=== PATIENT | female | born 1970 | race Caucasian/White ===

== ENCOUNTER 2022-02-21 22:24 | Emergency (ER) | payer MEDICARE, SELFPAY ==
[2022-02-21 22:37] VITALS: BP 163/95; PULSE 84; RESP 16; TEMP 36.9; O2SAT 97
[2022-02-21 22:39] VITALS: BP 178/92; PULSE 84; RESP 16; TEMP 36.9; O2SAT 98
--- NOTE | 2022-02-21 22:42 | ECG_ITS ---
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 Measurements Intervals [place] Rate: 85 P: 51 LA: 161 QRS: 39 QRSD: 88 T: 48 QT: 355 QTc: 424 Interpretive Statements SINUS RHYTHM No previous ECG available for comparison Electronically Signed On 02-22-2022 22:20:31 CDT by Carol Dumont M.D. [id number]
--- NOTE | 2022-02-21 22:42 | XRR_ITS ---
PROCEDURE INFORMATION: Exam: XR Chest Exam date and time: 02/21/2022 10:55 PM Age: 51 years old Clinical indication: Chest pressure; Patient HX: C/O chest pain with hypertension; Additional info: Cp TECHNIQUE: Imaging protocol: XR of the chest. Views: 1 view. COMPARISON: No relevant prior studies available. FINDINGS: Lungs: Unremarkable. No consolidation. Pleural spaces: Unremarkable. No pleural effusion. No pneumothorax. Heart/Mediastinum: Unremarkable. No cardiomegaly. Bones/joints: Unremarkable. XR/XR chest 1V portable [id number] IMPRESSION: No acute findings.
--- NOTE | 2022-02-21 22:43 | ED_ITS ---
Documented by User: ISIDRO Walters 02/22/22 02:14 HPI - Chest Pain General: Chief Complaint: Chest Pain Stated Complaint: High B/P Time Seen by Provider: 02/21/22 22:35 History of Present Illness: Patient is a 51-year-old female comes to the ED with chest pain. Patient has a history of hypertension but has not been seen by her PCP in several years and stopped taking her previously prescribed amlodipine for blood pressure a while ago. She states that about 3 days ago she started having elevated blood pressures at home. She said the highest blood pressure reading she got at home was 158/97. She had some old previously prescribed amlodipine and started taking that daily for the past 3 days. Tonight, just prior to arrival she was laying down and started feeling some chest pain and tightness that is centrally located in the chest. She says the pain is mild and rates it a 5 out of 10. She also endorses having some aching right arm pain as well since onset of chest pain. She has not taken any medications or aspirin before arriving to the ED. Denies any shortness of breath, cough, abdominal pain, nausea/vomiting, fever, bladder or bowel symptoms. Associated symptoms: Deny abdominal pain, dyspnea, fever(s), nausea, palpitations or vomiting Review of Systems Const: Denies: fever(s), chills or fatigue Eyes: Denies: change in vision or eye discomfort ENMT: Denies: throat pain, odynophagia, nasal discharge or nasal congestion Card: Reports: chest pain; Denies: palpitations, edema, swelling of feet/ankles, dyspnea on exertion or orthopnea Resp: Denies: dyspnea, productive cough or non-productive cough GI: Denies: abdominal pain, nausea, vomiting, diarrhea, constipation or hematochezia : Denies: flank pain, dysuria or hematuria Musc: Denies: neck pain, back pain or extremity swelling Skin/Breast: Denies: rash or new lesions Neuro: Denies: headache(s), numbness in extremities or weakness in extremities PFS ED PFSH: Medical History Hypertension Surgical History No pertinent past surgical history Physical Exam Const: COMMON NORMALS: no acute distress, patient oriented x3 and alert GENERAL APPEARANCE: cooperative and comfortable HENMT: COMMON NORMALS: normocephalic HEAD & SCALP: normocephalic MOUTH: Normal oral and palatal mucosa present THROAT: posterior oropharynx normal and uvula midline Eye: COMMON NORMALS: Equal, round and reactive pupils present and conjunctivae normal CONJUNCTIVA: Yes conjunctivae normal PUPIL: Yes Equal, round and reactive pupils present Neck/C-Spine: COMMON NORMALS: supple GENERAL: Yes normal visual inspection Resp: COMMON NORMALS: normal respiratory effort, No retractions, No use of accessory muscles and clear to auscultation bilaterally AUSCULTATION: clear to auscultation bilaterally Cardio: COMMON NORMALS: regular rate, regular rhythm, S1 normal heart sound present, S2 normal heart sound present, No gallops present (Cardio), No clicks present (Cardio), No murmurs present (Cardio) and Peripheral pulses 2+ throughout RATE: regular rate RHYTHM: regular rhythm HEART SOUNDS: S1 normal heart sound present and S2 normal heart sound present PERIPHERAL PULSES: Peripheral pulses 2+ throughout GI: COMMON NORMALS: Normal to inspection, nondistended, normoactive bowel sounds present, Soft to palpation, non-tender and no masses PALPATION: Yes Soft to palpation : COMMON NORMALS: Yes no CVA tenderness BLADDER/KIDNEY EXAM: Yes no CVA tenderness Back/Pelvis: COMMON NORMALS: no CVA tenderness Extremity: COMMON NORMALS: normal to inspection GENERAL: Yes edema (Nonpitting edema in feet and ankles bilaterally.) Neuro: COMMON NORMALS: patient oriented x3 and moves all extremities SENSORIUM/ORIENTATION: Yes alert Skin: GENERAL SKIN EXAM: dry skin Course Vital Signs: Vital signs: Vital Signs Temperature 98.0 F 02/22/22 01:22 Pulse Rate 69 02/22/22 01:22 Respiratory Rate 18 02/22/22 01:22 Blood Pressure 138/89 02/22/22 01:22 Pulse Oximetry 96 02/22/22 01:22 MDM - Chest Pain Medical Decision Making Patient is a 51-year-old female comes to the ED for chest pain. Past medical history of hypertension. Chest pain just prior to arrival she was laying down and started feeling some chest pain and tightness that is centrally located in the chest. She says the pain is mild and rates it a 5 out of 10. She also endorses having some aching right arm pain as well since onset of chest pain. Vitals are stable. Exam of patient is benign. CBC, CMP were unremarkable. Baseline and 2-hour troponins normal. EKG showed normal sinus rhythm with no ST segment elevation or depression. Chest x-ray showed no acute findings. Heart score of 1, which puts patient at low risk for major cardiac event. patient was stable for discharge home. Patient was diagnosed with noncardiac chest pain and was discharged home. She is given strict return to ED precautions. She has an appointment with her PCP next SundayFebruary 28. Patient understood and agreed with plan. Lab Data I reviewed the patient's lab results. : 02/21/22 23:13 02/21/22 23:13 Radiology Impressions Chest X-Ray 02/21/22 22:42 IMPRESSION: No acute findings. Laboratory Results WBC 5.8 10^3/uL (4.0-10.0) 02/21/22 23:13 RBC 4.60 10^6/uL (4.1-5.3) 02/21/22 23:13 Hgb 13.3 g/dL (11.5-15.3) 02/21/22 23:13 Hct 39.3 % (37.0-47.0) 02/21/22 23:13 MCV 85.4 fl (81-99) 02/21/22 23:13 MCH 28.9 pg (28.0-34.0) 02/21/22 23:13 MCHC 33.8 g/dL (30.0-36.0) 02/21/22 23:13 RDW 13.3 % (12.1-15.1) 02/21/22 23:13 Plt Count 249 10^3/cmm (130-400) 02/21/22 23:13 MPV 11.0 fL (7.4-10.4) H 02/21/22 23:13 Neut % (Auto) 39.4 % 02/21/22 23:13 Lymph % (Auto) 48.6 % 02/21/22 23:13 [place] % (Auto) 9.0 % 02/21/22 23:13 Eos % (Auto) 2.2 % 02/21/22 23:13 Baso % (Auto) 0.5 % 02/21/22 23:13 Neut # (Auto) 2.27 10^3/uL (1.8-7.7) 02/21/22 23:13 Lymph # (Auto) 2.8 10^3/uL (0.8-4.8) 02/21/22 23:13 [place] # (Auto) 0.5 10^3/uL (0.2-0.9) 02/21/22 23:13 Eos # (Auto) 0.1 10^3/uL (0.0-0.8) 02/21/22 23:13 Baso # (Auto) 0.0 10^3/uL (0.0-0.1) 02/21/22 23:13 Nucleated RBC % (auto) 0 % 02/21/22 23:13 Nucleated RBCs # 0.0 /100WBC 02/21/22 23:13 Sodium 137 mmol/L (136-145) 02/21/22 23:13 Potassium 3.9 mmol/L (3.5-5.1) 02/21/22 23:13 Chloride 105 mmol/L (98-107) 02/21/22 23:13 Carbon Dioxide 21 mmol/L (22-29) L 02/21/22 23:13 Anion Gap 14.9 (5-19) 02/21/22 23:13 BUN 12 mg/dL (6-20) 02/21/22 23:13 Creatinine 0.7 mg/dL (0.5-0.9) 02/21/22 23:13 GFR Calculation 88.9 mL/min (90-130) L 02/21/22 23:13 Glucose 103 mg/dL (65-115) 02/21/22 23:13 Calculated Osmolality 284 mOsm/kg (285-295) L 02/21/22 23:13 Calcium 8.9 mg/dL (8.5-10.5) 02/21/22 23:13 Total Bilirubin 0.3 mg/dL (0.15-1.2) 02/21/22 23:13 AST 24 U/L (0-32) 02/21/22 23:13 ALT 28 U/L (0-33) 02/21/22 23:13 Alkaline Phosphatase 69 IU/L (35-105) 02/21/22 23:13 Troponin T Baseline 6 ng/L (0-10) 02/21/22 23:13 Troponin T 120 Minute 6.00 ng/L (0-10) 02/22/22 00:40 Delta Troponin T 0 ABS# (0-10) 02/22/22 00:40 Total Protein 6.9 g/dL (6.6-8.7) 02/21/22 23:13 Albumin 4.3 g/dL (3.5-5.2) 02/21/22 23:13 Globulin 2.6 g/dL (1.3-4.6) 02/21/22 23:13 EKG Data EKG 2: EKG interpretation date: 02/22/22 Interpretation: Sinus rhythm, 70 bpm, no ST segment elevation or depression seen. Discharge Plan Discharge Patient Disposition: Home Clinical Impression: Non-cardiac chest pain Condition: Stable Discharge Orders: Discharge ED (Routine); Ordered 02/22/22 Ordered By: Ryan Patterson Discharge Diet: Regular Discharge Activity: Increase activity as tolerated Patient Instructions: Noncardiac Chest Pain (ED) Activity Restrictions/Additional Instructions: Follow-up with your PCP at your next scheduled appointment this coming Sunday. Continue checking blood pressures daily and journal results to show to your PCP at your next visit. Return To the ER or your medical provider if condition worsens. Please read and understand discharge instructions. Thank you for choosing [facility] for your healthcare needs today. Please realize this is an emergency room and that we are providing you with a medical screening exam and this may not be complete and all inclusive of all the testing and or work up that you may need to determine your ailment or severity of your illness. It is very important that you follow up as instructed or that you return to the Emergency Department should you have concerns or if your condition changes or worsens in any way. Stand Alone Forms: Work/School Release Coding Level of Care Code ED Special Assemblies Supervisor for Chg Fwd Exam Comprehensive Documented by User: Ok Levine MD 02/22/22 03:17 HPI - Chest Pain General: Chief Complaint: Chest Pain Stated Complaint: High B/P Time Seen by Provider: 02/21/22 22:35 [facility] ED PFSH: Medical History Hypertension Surgical History No pertinent past surgical history Course Vital Signs: Vital signs: Vital Signs Temperature 98.0 F 02/22/22 01:22 Pulse Rate 69 02/22/22 01:22 Respiratory Rate 18 02/22/22 01:22 Blood Pressure 138/89 02/22/22 01:22 Pulse Oximetry 96 02/22/22 01:22 MDM - Chest Pain Medical Decision Making Patient is a 51-year-old female comes to the ED for chest pain. Past medical history of hypertension. Chest pain just prior to arrival she was laying down and started feeling some chest pain and tightness that is centrally located in the chest. She says the pain is mild and rates it a 5 out of 10. She also endorses having some aching right arm pain as well since onset of chest pain. Vitals are stable. Exam of patient is benign. CBC, CMP were unremarkable. Baseline and 2-hour troponins normal. EKG showed normal sinus rhythm with no ST segment elevation or depression. Chest x-ray showed no acute findings. Heart score of 1, which puts patient at low risk for major cardiac event. patient was stable for discharge home. Patient was diagnosed with noncardiac chest pain and was discharged home. She is given strict return to ED precautions. She has an appointment with her PCP next SundayFebruary 28. Patient understood and agreed with plan. I have reviewed this documentation. Ok Levine MD Emergency Medicine Lab Data : 02/21/22 23:13 02/21/22 23:13 Radiology Impressions Chest X-Ray 02/21/22 22:42 IMPRESSION: No acute findings. Laboratory Results WBC 5.8 10^3/uL (4.0-10.0) 02/21/22 23:13 RBC 4.60 10^6/uL (4.1-5.3) 02/21/22 23:13 Hgb 13.3 g/dL (11.5-15.3) 02/21/22 23:13 Hct 39.3 % (37.0-47.0) 02/21/22 23:13 MCV 85.4 fl (81-99) 02/21/22 23:13 MCH 28.9 pg (28.0-34.0) 02/21/22 23:13 MCHC 33.8 g/dL (30.0-36.0) 02/21/22 23:13 RDW 13.3 % (12.1-15.1) 02/21/22 23:13 Plt Count 249 10^3/cmm (130-400) 02/21/22 23:13 MPV 11.0 fL (7.4-10.4) H 02/21/22 23:13 Neut % (Auto) 39.4 % 02/21/22 23:13 Lymph % (Auto) 48.6 % 02/21/22 23:13 [place] % (Auto) 9.0 % 02/21/22 23:13 Eos % (Auto) 2.2 % 02/21/22 23:13 Baso % (Auto) 0.5 % 02/21/22 23:13 Neut # (Auto) 2.27 10^3/uL (1.8-7.7) 02/21/22 23:13 Lymph # (Auto) 2.8 10^3/uL (0.8-4.8) 02/21/22 23:13 [place] # (Auto) 0.5 10^3/uL (0.2-0.9) 02/21/22 23:13 Eos # (Auto) 0.1 10^3/uL (0.0-0.8) 02/21/22 23:13 Baso # (Auto) 0.0 10^3/uL (0.0-0.1) 02/21/22 23:13 Nucleated RBC % (auto) 0 % 02/21/22 23:13 Nucleated RBCs # 0.0 /100WBC 02/21/22 23:13 Sodium 137 mmol/L (136-145) 02/21/22 23:13 Potassium 3.9 mmol/L (3.5-5.1) 02/21/22 23:13 Chloride 105 mmol/L (98-107) 02/21/22 23:13 Carbon Dioxide 21 mmol/L (22-29) L 02/21/22 23:13 Anion Gap 14.9 (5-19) 02/21/22 23:13 BUN 12 mg/dL (6-20) 02/21/22 23:13 Creatinine 0.7 mg/dL (0.5-0.9) 02/21/22 23:13 GFR Calculation 88.9 mL/min (90-130) L 02/21/22 23:13 Glucose 103 mg/dL (65-115) 02/21/22 23:13 Calculated Osmolality 284 mOsm/kg (285-295) L 02/21/22 23:13 Calcium 8.9 mg/dL (8.5-10.5) 02/21/22 23:13 Total Bilirubin 0.3 mg/dL (0.15-1.2) 02/21/22 23:13 AST 24 U/L (0-32) 02/21/22 23:13 ALT 28 U/L (0-33) 02/21/22 23:13 Alkaline Phosphatase 69 IU/L (35-105) 02/21/22 23:13 Troponin T Baseline 6 ng/L (0-10) 02/21/22 23:13 Troponin T 120 Minute 6.00 ng/L (0-10) 02/22/22 00:40 Delta Troponin T 0 ABS# (0-10) 02/22/22 00:40 Total Protein 6.9 g/dL (6.6-8.7) 02/21/22 23:13 Albumin 4.3 g/dL (3.5-5.2) 02/21/22 23:13 Globulin 2.6 g/dL (1.3-4.6) 02/21/22 23:13 Discharge Plan Discharge Patient Disposition: Home Clinical Impression: Non-cardiac chest pain Condition: Stable Discharge Orders: Discharge ED (Routine); Ordered 02/22/22 Ordered By: Ryan Patterson Discharge Diet: Regular Discharge Activity: Increase activity as tolerated Patient Instructions: Noncardiac Chest Pain (ED) Activity Restrictions/Additional Instructions: Follow-up with your PCP at your next scheduled appointment this coming Sunday. Continue checking blood pressures daily and journal results to show to your PCP at your next visit. Return To the ER or your medical provider if condition worsens. Please read and understand discharge instructions. Thank you for choosing [facility] for your healthcare needs today. Please realize this is an emergency room and that we are providing you with a medical screening exam and this may not be complete and all inclusive of all the testing and or work up that you may need to determine your ailment or severity of your illness. It is very important that you follow up as instructed or that you return to the Emergency Department should you have concerns or if your condi tion changes or worsens in any way. Stand Alone Forms: Work/School Release Coding Level of Care Code ED Special Assemblies Supervisor for Paul Fwd Exam Comprehensive
[2022-02-21 23:09] VITALS: BP 153/83; PULSE 84; RESP 14; TEMP 36.9; O2SAT 98
[2022-02-21 23:19] LABS: Basophils % 0.5 %; Eosinophils # 0.1 10^3/uL (0.0-0.8); Eosinophils % 2.2 %; Hematocrit 39.3 % (37.0-47.0); Hemoglobin 13.3 g/dL (11.5-15.3); Lymphocytes # 2.8 10^3/uL (0.8-4.8); Lymphocytes % 48.6 %; Mean Corpuscular HGB Conc 33.8 g/dL (30.0-36.0); Mean Corpuscular Hemoglobin 28.9 pg (28.0-34.0); Mean Corpuscular Volume 85.4 fl (81-99); Monocytes # 0.5 10^3/uL (0.2-0.9); Neutrophils # 2.27 10^3/uL (1.8-7.7); Neutrophils % 39.4 %; Nucleated Red Blood Cells % 0 %; Platelet Count 249 10^3/cmm (130-400); Red Cell Distribution Width 13.3 % (12.1-15.1); White Blood Count 5.8 10^3/uL (4.0-10.0)
[2022-02-21] MEDS: aspirin 81 mg Chew Tablet 324 MG PO (23:26)
[2022-02-21 23:30] VITALS: BP 138/88; PULSE 75; RESP 16; O2SAT 98
[2022-02-21 23:40] VITALS: BP 138/88; PULSE 75; RESP 16; TEMP 36.9; O2SAT 98
[2022-02-21 23:45] LABS: Troponin(5th) Baseline 6 ng/L (0-10)
[2022-02-21 23:46] LABS: Alanine Aminotransferase 28 U/L (0-33); Albumin Level 4.3 g/dL (3.5-5.2); Alkaline Phosphatase 69 IU/L (35-105); Anion Gap 14.9 (5-19); Aspartate Amino Transferase 24 U/L (0-32); Blood Urea Nitrogen 12 mg/dL (6-20); Calcium 8.9 mg/dL (8.5-10.5); Carbon Dioxide 21 mmol/L (22-29); Chloride 105 mmol/L (98-107); Globulin 2.6 g/dL (1.3-4.6); Glomerular Filtration Rate 88.9 mL/min (90-130); Glucose 103 mg/dL (65-115); Osmolality Calculated 284 mOsm/kg (285-295); Potassium 3.9 mmol/L (3.5-5.1); Sodium 137 mmol/L (136-145); Total Bilirubin 0.3 mg/dL (0.15-1.2); Total Protein 6.9 g/dL (6.6-8.7)
--- NOTE | 2022-02-22 00:42 | ECG_ITS ---
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 Measurements Intervals [place] Rate: 70 P: 56 AR: 171 QRS: 72 QRSD: 93 T: 50 QT: 406 QTc: 438 Interpretive Statements SINUS RHYTHM Compared to ECG 02/21/2022 21:46:41 No significant changes Electronically Signed On 02-22-2022 22:26:03 CDT by Carol Dumont M.D. [id number]
[2022-02-22 01:00] VITALS: BP 138/89; PULSE 69; RESP 18; O2SAT 96
[2022-02-22 01:19] LABS: Troponin 5 2HR Delta 0 ABS# (0-10)
[2022-02-22] MEDS: ketorolac 30 mg/mL INJ IVP (01:20)
[2022-02-22 01:22] VITALS: BP 138/89; PULSE 69; RESP 18; TEMP 36.7; O2SAT 96
== END 2022-02-22 01:29 | disposition home or self-care (01) ==
PROVIDERS: Emergency Provider Physician Assistant
DX: R07.89 Other chest pain (principal); I10 Essential (primary) hypertension
CPT/HCPCS: 71045; 80053; 84484; 85025; 93005; 96374; 99284; J1885

== ENCOUNTER → 2022-07-01 15:10 | Outpatient (BNVA) | payer OTHER, SELFPAY | PROVIDERS: Visit Provider Nurse Practitioner Family | DX: M54.9 Dorsalgia, unspecified (principal); S29.012A Strain of muscle and tendon of back wall of thorax, initial encounter; X58.XXXA Exposure to other specified factors, initial encounter | CPT/HCPCS: 81000 ==

== ENCOUNTER 2023-07-03 12:26 | Outpatient (CLI) | payer OTHER, SELFPAY ==
[2023-07-03 13:00] LABS: Basophils % 0.8 %; Eosinophils # 0.1 10^3/uL (0.0-0.8); Eosinophils % 1.7 %; Hematocrit 40.3 % (36-47); Lymphocytes # 2.4 10^3/uL (0.8-4.8); Lymphocytes % 50.7 %; Mean Corpuscular HGB Conc 32.8 g/dL (30-55); Mean Corpuscular Hemoglobin 28.7 pg (27-33); Mean Corpuscular Volume 87.6 fl (85-98); Mean Platelet Volume 10.8 fL (7.4-10.4); Monocytes # 0.3 10^3/uL (0.2-0.9); Monocytes % 6.4 %; Neutrophils # 1.93 10^3/uL (1.8-7.7); Neutrophils % 40.2 %; Nucleated Red Blood Cells % 0 %; Platelet Count 239 10^3/cmm (157-399); Red Cell Distribution Width 13.5 % (12.1-15.1); White Blood Count 4.81 10^3/uL (3.29-11.43)
[2023-07-03 13:43] LABS: Folate Level 11.6 ng/mL (4.8-37.3)
[2023-07-03 13:45] LABS: 25 Hydroxy Vitamin D 20 ng/mL (30-100); Alanine Aminotransferase 16 U/L (0-33); Albumin Level 4.4 g/dL (3.5-5.2); Alkaline Phosphatase 77 U/L (35-105); Anion Gap 12.9 (5-19); Aspartate Amino Transferase 18 U/L (0-32); Blood Urea Nitrogen 17 mg/dL (6-20); Calcium 9.3 mg/dL (8.5-10.5); Carbon Dioxide 26 mmol/L (22-29); Chloride 105 mmol/L (98-107); Globulin 2.8 g/dL (1.3-4.6); Glucose 119 mg/dL (65-115); Magnesium 2.1 mg/dL (1.7-2.3); Osmolality Calculated 293 mOsm/kg (285-295); Potassium 3.9 mmol/L (3.5-5.1); Sodium 140 mmol/L (136-145); Thyroid Stimulating Hormone 1.05 uIU/mL (0.27-4.20); Total Bilirubin 0.5 mg/dL (0.15-1.2); Total Protein 7.2 g/dL (6.6-8.7); Vitamin B12 595 pg/mL (232-1245)
[2023-07-03 14:10] LABS: Free T4 Free Thyroxine 1.31 ng/dL (0.82-1.77); T3 Free 3.3 PG/ML (2.0-4.4)
[2023-07-06 17:40] LABS: Methylmalonic Acid 143 nmol/L (87-318)
[2023-07-07 09:19] LABS: Lamotrigine (Lamictal) Level 6.1 mcg/mL (2.5-15.0)
[2023-07-07 16:49] LABS: Vitamin B6 Plasma 6.9 ng/mL (2.1-21.7)
== END 2023-07-03 12:27 | disposition home or self-care (01) ==
LOC: LAB 12:26
PROVIDERS: PCP Nurse Practitioner Family; Visit Provider Psychiatry & Neurology Neurology
DX: G40.909 Epilepsy, unspecified, not intractable, without status epilepticus (principal)
CPT/HCPCS: 36415; 80053; 80175; 82306; 82607; 82746; 83735; 83921; 84207; 84439; 84443; 84481; 85025

== ENCOUNTER 2023-07-05 14:58 | Outpatient (CLI) | payer OTHER, SELFPAY ==
--- NOTE | 2023-07-05 15:15 | MR_ITS ---
WS: [id number] MRI HEAD WITH CONTRAST TECHNIQUE: Sagittal T1, T2 axial, T2 axial FLAIR, axial susceptibility weighted imaging, axial diffus ion weighted images, and coronal T2 images were obtained. Pre and post-T1 axial and post T1 coronal i mages. ADC and FSPGR images. CLINICAL INFORMATION: R56.9 - Unspecified convulsions COMPARISON: None. FINDINGS: No evidence of restricted diffusion to suggest acute ischemia. Ventricular system and basilar cistern s are patent. Normal bowers-white differentiation. No suspicious intracranial signal normalities. [place] l posterior fossa. Normal vascular flow voids at the skull base. No extra-axial fluid collections. No evidence of mass or mass effect. Normal posterior nasopharynx. Mild mucosal thickening with a small amount of fluid in the maxillary sinuses. Mucosal thickening and fluid in the RIGHT sphenoid sinus. M astoid air cells are well aerated. No hemosiderin on the susceptibly weighted images. Normal optic chiasm and pituitary infundibulum. Te mporal lobes and hippocampal formations are normal in appearance. No signal abnormalities mesial temp oral lobes. No abnormal intracranial enhancement. Normal optic chiasm and pituitary infundibulum. Normal dural ve nous sinuses. IMPRESSION: 1. No evidence of restricted diffusion to suggest acute ischemia. 2. No suspicious intracranial signal normalities. Normal bowers-white differentiation. 3. Temporal lobes and hippocampal formations are normal in appearance. No signal abnormalities in th e mesial temporal lobes. 4. Mild parenchymal volume loss. 5. No hemosiderin on susceptibility-weighted images. 6. No abnormal intracranial enhancement. 7. Mild inflammatory changes in the paranasal sinuses.
[2023-07-05] MEDS: gadobenate dimeglumine 20 mL vial IV (15:58)
== END 2023-07-05 14:59 | disposition home or self-care (01) ==
LOC: RAD 14:58
PROVIDERS: PCP Nurse Practitioner Family; Visit Provider Psychiatry & Neurology Neurology
DX: R56.9 Unspecified convulsions (principal)
CPT/HCPCS: 70553; A9577

== ENCOUNTER 2023-07-16 15:19 | Emergency (ER) | payer OTHER, SELFPAY ==
[2023-07-16 15:34] VITALS: BP 157/97; PULSE 81; RESP 16; TEMP 36.5; O2SAT 98; BMI 28.1
--- NOTE | 2023-07-16 15:41 | W.ED.LOWEXIN ---
HPI - Extremity Injury (Lower) General: Chief Complaint: Extremity Injury, Lower Stated Complaint: fell Time Seen by Provider: 07/16/23 15:40 Source: patient Mode of arrival: ambulatory Limitations: no limitations History of Present Illness: Patient is a 53-year-old female presents to ED today with complaint of right leg pain. Patient states yesterday she accidentally tripped over her animal. She states she landed onto her right knee but really is not having pain here. She feels like she pulled something in her right buttock and down the posterior right thigh as she describes it as a burning sensation . She is ambulatory on the extremity without difficulty or assistance. complaint: thigh injury Onset (ago): day(s) (yesterday) Injury: Right: thigh Type of Injury: other (fall) Place: home Severity: moderate Relieving factors: immobilization Exacerbating factors: weight bearing Context: fall Associated symptoms: Reports no associated symptoms Other symptoms: none Review of Systems Musc: Reports: extremity pain; Denies: neck pain, back pain, extremity swelling, joint pain, joint swelling, joint redness, joint warmth, joint stiffness, limited range of motion, muscle cramps, muscle weakness, decrease in muscle mass or loss of height Neuro: Denies: numbness in extremities, weakness in extremities, sensory changes or difficulty walking [facility] ED PFSH: Medical History Hypertension Surgical History No pertinent past surgical history Family History Grandmother Cancer Heart attack Mother Hypertension Daughter Epilepsy Physical Exam Const: COMMON NORMALS: no acute distress, patient oriented x3, no limitations, alert and well nourished Resp: COMMON NORMALS: normal respiratory effort and clear to auscultation bilaterally AUSCULTATION: clear to auscultation bilaterally Cardio: COMMON NORMALS: regular rate and regular rhythm RATE: regular rate RHYTHM: regular rhythm GI: COMMON NORMALS: Normal to inspection, nondistended, normoactive bowel sounds present, Soft to palpation, non-tender and no masses PALPATION: Yes Soft to palpation : COMMON NORMALS: Yes no CVA tenderness BLADDER/KIDNEY EXAM: Yes no CVA tenderness Back/Pelvis: COMMON NORMALS: no CVA tenderness, thoracic and lumbar spine normal to inspection, no thoracic nor lumbar tenderness and thoraco-lumbar ROM normal Extremity: COMMON NORMALS: full ROM, capillary refill normal, no joint enlargement, no clubbing, cyanosis or edema, no calf tenderness and no pedal edema GENERAL: Yes normal exam except as noted OTHER: distal pulses/sensation normal; no swelling/discoloration noted EXTREMITY IMAGE (BACK): 1. 2. mild tenderness to palpation with radiation/burning posterior thigh; full ROM; can bear full weight on extremity Neuro: COMMON NORMALS: patient oriented x3, moves all extremities, no focal motor deficits and no sensory deficits noted SENSORIUM/ORIENTATION: Yes alert Skin: COMMON NORMALS: no rashes or lesions noted GENERAL SKIN EXAM: no rashes or lesions noted TRAUMA: no lacerations or abrasions Course Vital Signs: Vital signs: Vital Signs Temperature 97.7 F 07/16/23 15:34 Pulse Rate 81 07/16/23 15:34 Respiratory Rate 16 07/16/23 15:34 Blood Pressure 157/97 07/16/23 15:34 Pulse Oximetry 98 07/16/23 15:34 Oxygen Delivery Me thod Room Air 07/16/23 15:34 MDM - Extremity Injury (Lower) Medical Decision Making Patient does not appear to have any bony tenderness. Offered XR of hip/pelvis but she declines. Patient will be put on anti-inflammatories and steroids to help with inflammation. Return ED precautions given. Otherwise I would like her to follow-up with primary care later this week/next week if symptoms do not seem to be improving. No radiology studies performed this visit Discharge Plan Discharge Patient Disposition: Home Clinical Impression: Muscle strain of gluteal region Qualifiers: Encounter type: initial encounter Laterality: right Qualified Code(s): S76.011A - Strain of muscle, fascia and tendon of right hip, initial encounter Condition: Stable Prescriptions: New Medrol (Myron) 4 mg tablets,dose pack See Rx Instructions .ROUTE .COMPLEX Qty: 21 0RF Rx Instructions: orally per package directions meloxicam 7.5 mg tablet 7.5 mg PO DAILY Qty: 14 0RF No Action clonazepam 1 mg tablet 1 mg PO DAILY Qty: 30 2RF Rx Instructions: take one at bed time lisinopril 20 mg tablet 20 mg PO DAILY cholecalciferol (vitamin D3) 1,250 mcg (50,000 unit) capsule 50,000 unit PO .weekly Qty: 12 2RF lamotrigine 50 mg tablet extended release 24hr 50 mg PO DAILY Qty: 90 2RF Rx Instructions: 2 in am 3 in pm for week, then 3 in am and 3 at night after Discharge Orders: Discharge ED (Routine); Ordered 07/16/23 Ordered By: Lorene Kilpatrick Referrals: Altagracia Corley FNP [Primary Care Provider] - Patient Instructions: Muscle Strain (DC) Activity Restrictions/Additional Instructions: As we discussed please follow-up with primary care in 1 to 2 weeks if symptoms do not seem to be improving. You may continue ice and heat. You may also do [id number] Tylenol in addition to the medications prescribed today. Do not do any additional anti-inflammatory such as naproxen or ibuprofen as meloxicam as an anti-inflammatory. Coding Level of Care Code ED Bilingual Loan Processor for Paul Macdonald
[2023-07-16] MEDS: dexamethasone 10 mg/mL INJ 8 MG IM (16:00)
[2023-07-16] MEDS: ketorolac 60 mg/2 mL INJ IM (16:00)
[2023-07-16 16:34] VITALS: BP 157/97; PULSE 81; RESP 16; TEMP 36.5; O2SAT 98
== END 2023-07-16 16:35 | disposition home or self-care (01) ==
PROVIDERS: Emergency Provider Physician Assistant; PCP Nurse Practitioner Family
DX: S76.011A Strain of muscle, fascia and tendon of right hip, initial encounter (principal); I10 Essential (primary) hypertension; W01.0XXA Fall on same level from slipping, tripping and stumbling without subsequent striking against object, initial encounter
CPT/HCPCS: 96372; 99284; J1100; J1885

== ENCOUNTER 2023-07-26 08:50 | Observation (INO) | payer OTHER, SELFPAY ==
[2023-07-26] VITALS (55 sets, daily range): BP systolic 112–170; BP diastolic 66–128; PULSE 71–93; RESP 11–25; TEMP 36.8; O2SAT 88–100; BMI 30.8
--- NOTE | 2023-07-26 08:57 | ED_ITS ---
HPI - Seizure General: Chief Complaint: Seizure Stated Complaint: Seizure Time Seen by Provider: 07/26/23 08:56 Source: patient Mode of arrival: wheelchair History of Present Illness: HPI Narrative: 53-year-old female with a history of seizures, she has a history of juvenile myoclonic epilepsy. She was at work this morning interestingly enough in the neurology office with Dr. Vickers he witnessed 3 seizures while she was there a rapid response was called and she was brought to the emergency room no recent change in medication she did not recently been ill no recent alcohol use or head injury. She is currently on Lamictal and clonazepam. She has been on valproic acid in the past but had hair loss and stopped it. She reports her last seizure was 3 months ago on arrival here she is mildly postictal, but cognizant enough to give good history. Dr. Vickers is in the department and recommended a gram of valproic acid along with a milligram of Ativan. Patient states she is not recently changed or missed any doses of her medication. complaint: seizure Description of Episode: tonic-clonic movement Witnessed: Yes - by Bystander Trauma: No Seizure History: No Place: Work Associated symptoms: Deny chest pain, chills or fever(s) Treatments prior to arrival: none Review of Systems Const: Denies: fever(s) or chills Card: Denies: chest pain Resp: Denies: dyspnea GI: Denies: abdominal pain : Denies: dysuria, urinary frequency or urinary urgency Musc: Denies: neck pain or back pain Skin/Breast: Denies: rash Neuro: Reports: other (Seizures); Denies: headache(s) PFS ED PFSH: Medical History (Updated 08/06/23 @ 06:38 by Marcos Archer DO) Hypertension Juvenile myoclonic epilepsy, intractable, without status epilepticus Surgical History (Updated 07/26/23 @ 11:13 by Mario Alberto Conti MD) History of cholecystectomy Hx of appendectomy Hx of colonoscopy with polypectomy Hx of hysterectomy No pertinent past surgical history Family History Grandmother Cancer Heart attack Mother Hypertension Daughter Epilepsy Social History (Updated 07/26/23 @ 11:14 by Mario Alberto Conti MD) Smoking and tobacco/nicotine status: former use of tobacco/nicotine Alcohol intake: never Physical Exam Const: COMMON NORMALS: no acute distress GENERAL APPEARANCE: cooperative and comfortable ORIENTATION/CONSCIOUSNESS: Yes awake, Yes oriented to person, Yes oriented to place and Yes oriented to time HENMT: COMMON NORMALS: normocephalic, atraumatic and hearing grossly normal bilaterally HEAD & SCALP: normocephalic and atraumatic Resp: COMMON NORMALS: normal respiratory effort, No retractions, No use of accessory muscles and clear to auscultation bilaterally AUSCULTATION: clear to auscultation bilaterally Cardio: COMMON NORMALS: regular rate, regular rhythm and No murmurs present (Cardio) RATE: regular rate RHYTHM: regular rhythm GI: COMMON NORMALS: Soft to palpation and No hepatosplenomegaly present AUSCULTATION: Yes normoactive bowel sounds PALPATION: Yes Soft to palpation, No Tenderness to palpation present (GI), No Guarding due to palpation present (GI) and Yes No hepatosplenomegaly present Extremity: COMMON NORMALS: normal to inspection, capillary refill normal, no clubbing, cyanosis or edema, no calf tenderness and no pedal edema Neuro: SENSORIUM/ORIENTATION: Yes oriented to person, Yes oriented to place and Yes oriented to time Skin: COMMON NORMALS: no rashes or lesions noted GENERAL SKIN EXAM: no rashes or lesions noted Course Vital Signs: Vital signs: Vital Signs Temperature 98.3 F 07/27/23 09:34 Pulse Rate 77 07/27/23 09:34 Respiratory Rate 24 H 07/27/23 09:34 Blood Pressure 134/78 07/27/23 09:34 Pulse Oximetry 96 07/27/23 09:34 Oxygen Delivery Me thod Room Air 07/27/23 06:00 MDM - Seizure MDM Narrative Medical decision making narrative: Patient seen in the emergency room by Dr. Vickers. He recommends the patient be admitted initiate valproic acid and monitor. Patient has mild elevation of creatinine mild metabolic acidosis suspect this may be related to the recent seizure. Discussed with hospitalist and with neurology orders written Medical Records Attestation: I reviewed the patient's medical records. Lab Data Attestation: I reviewed the patient's lab results. 07/27/23 04:25 07/27/23 04:25 Labs: Laboratory Results WBC 9.71 10^3/uL (3.29-11.43) 07/26/23 08:46 RBC 5.19 10^6/uL (3.85-5.65) 07/26/23 08:46 Hgb 14.80 g/dL (11.27-16.99) 07/26/23 08:46 Hct 48.0 % (36-47) H 07/26/23 08:46 MCV 92.5 fl (85-98) 07/26/23 08:46 MCH 28.5 pg (27-33) 07/26/23 08:46 MCHC 30.8 g/dL (30-55) 07/26/23 08:46 RDW 13.2 % (12.1-15.1) 07/26/23 08:46 Plt Count 269 10^3/cmm (157-399) 07/26/23 08:46 MPV 11.3 fL (7.4-10.4) H 07/26/23 08:46 Lymph % (Auto) Not Reportable 07/26/23 08:46 Stanton % (Auto) Not Reportable 07/26/23 08:46 Lymph # (Auto) Not Reportable 07/26/23 08:46 Stanton # (Auto) Not Reportable 07/26/23 08:46 Total Counted 100 (0-100) 07/26/23 08:46 Atypical Lymphs % 17.0 % (0-5) H 07/26/23 08:46 Absolute Neutrophils 3.8 10^3/cmm (1.4-6.5) 07/26/23 08:46 Segmented Neutrophils 39 % 07/26/23 08:46 Abs Segm Neuts (Man) 3.8 10/cmm (1.6-7.1) 07/26/23 08:46 Band Neutrophils 0.0 % 07/26/23 08:46 Abs Band Neuts (Man) 0.0 10^3/cmm (0.0-1.2) 07/26/23 08:46 Absolute Lymphocytes 5.0 10^3/cmm (1.2-3.4) H 07/26/23 08:46 Lymphocytes (Manual) 35 % 07/26/23 08:46 Monocytes (Manual) 9.0 % 07/26/23 08:46 Absolute Monocytes 0.9 10^3/cmm (0.1-0.6) H 07/26/23 08:46 Eosinophils (Manual) 0 % 07/26/23 08:46 Absolute Eosinophils 0.0 10^3/cmm (0.0-0.7) 07/26/23 08:46 Basophils (Manual) 0.0 % 07/26/23 08:46 Absolute Basophils 0.0 10^3/cmm (0.0-0.2) 07/26/23 08:46 Platelet Estimate Normal (Normal) 07/26/23 08:46 Giant Platelets 1+ H 07/26/23 08:46 Sodium 144 mmol/L (136-145) 07/26/23 08:46 Potassium 3.6 mmol/L (3.5-5.1) 07/26/23 08:46 Chloride 103 mmol/L (98-107) 07/26/23 08:46 Carbon Dioxide 14 mmol/L (22-29) L 07/26/23 08:46 Anion Gap 30.6 (5-19) H 07/26/23 08:46 BUN 14 mg/dL (6-20) 07/26/23 08:46 Creatinine 1.1 mg/dL (0.5-0.9) H 07/26/23 08:46 GFR Calculation 52.4 mL/min (90-130) L 07/26/23 08:46 Glucose 142 mg/dL (65-115) H 07/26/23 08:46 Calculated Osmolality 301 mOsm/kg (285-295) H 07/26/23 08:46 Calcium 10.0 mg/dL (8.5-10.5) 07/26/23 08:46 Magnesium 2.5 mg/dL (1.7-2.3) H 07/26/23 08:46 Total Bilirubin 0.4 mg/dL (0.15-1.2) 07/26/23 08:46 AST 23 U/L (0-32) 07/26/23 08:46 ALT 18 U/L (0-33) 07/26/23 08:46 Alkaline Phosphatase 89 U/L (35-105) 07/26/23 08:46 Total Protein 7.7 g/dL (6.6-8.7) 07/26/23 08:46 Albumin 4.5 g/dL (3.5-5.2) 07/26/23 08:46 Globulin 3.2 g/dL (1.3-4.6) 07/26/23 08:46 Lamotrigine 1.9 mcg/mL (2.5-15.0) L 07/26/23 08:46 All radiology interpretation(s) finalized by discharge Discharge Plan Discharge Patient Disposition: Admitted As Inpatient Admit Provider: Mario Alberto Conti Clinical Impression: Generalized seizure Condition: Stable Discharge Diet: Regular Discharge Activity: Increase activity as tolerated Coding Level of Care Code ED Ostomy Care Nurse for Paul Macdonald
[2023-07-26 09:09] LABS: Mean Corpuscular HGB Conc 30.8 g/dL (30-55); Mean Corpuscular Hemoglobin 28.5 pg (27-33); Mean Corpuscular Volume 92.5 fl (85-98); Mean Platelet Volume 11.3 fL (7.4-10.4); Platelet Count 269 10^3/cmm (157-399); Red Blood Count 5.19 10^6/uL (3.85-5.65); Red Cell Distribution Width 13.2 % (12.1-15.1); White Blood Count 9.71 10^3/uL (3.29-11.43)
[2023-07-26] MEDS: LORazepam 2 mg/mL INJ 1 mL 1 MG IVP (09:10)
[2023-07-26] MEDS: valproic acid inj 1,000 MG in sodium chloride 0.9% 50 ML 55 MG IV (09:12)
[2023-07-26 09:36] LABS: Alanine Aminotransferase 18 U/L (0-33); Albumin Level 4.5 g/dL (3.5-5.2); Alkaline Phosphatase 89 U/L (35-105); Anion Gap 30.6 (5-19); Aspartate Amino Transferase 23 U/L (0-32); Blood Urea Nitrogen 14 mg/dL (6-20); Carbon Dioxide 14 mmol/L (22-29); Chloride 103 mmol/L (98-107); Globulin 3.2 g/dL (1.3-4.6); Glomerular Filtration Rate 52.4 mL/min (90-130); Glucose 142 mg/dL (65-115); Magnesium 2.5 mg/dL (1.7-2.3); Osmolality Calculated 301 mOsm/kg (285-295); Potassium 3.6 mmol/L (3.5-5.1); Sodium 144 mmol/L (136-145); Total Bilirubin 0.4 mg/dL (0.15-1.2); Total Protein 7.7 g/dL (6.6-8.7)
--- NOTE | 2023-07-26 09:46 | PM.CONSULT ---
Providers/Reason For Consult Consulting Physician/Specialty*: Krzysztof Vickers MD neurology and epilepsy Reason for Consult*: Intractable juvenile myoclonic epilepsy with recurrent seizures associated with loss of consciousness History of Present Illness History of Present Illness Referring physician: Altagracia JEFFREY Reason for observation admission: Juvenile myoclonic epilepsy with recurrent myoclonic jerks with altered awareness with progression to grand mal seizure on July 26, 2023 (witnessed by myself and medical staff in the [facility] clinic) History of present illness: 53-year-old female who is employed at [employer].? The patient was diagnosed with juvenile myoclonic epilepsy (ERIC) at age 15.? The patient stated that she was not only experiencing myoclonic jerks but also grand mal seizures 5 times a week.? The patient stated that she underwent a hysterectomy in 2007 and the grand mal seizures stopped in 2018.? The patient stated that she has not experienced any seizures associated with altered awareness since 2019.? She reports an occasional single brief myoclonic jerk in her upper extremities without altered awareness approximately once a month.? She stated that when the occasional single myoclonic jerks occur, there is no associated altered awareness.? Last myoclonic jerk was April 2023.? According to the patient she was diagnosed in [facility] and later her parents moved to [place].? She stated that her and the patient reports that she and her family moved back to [place].? 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 Patient stated that her license were reinstated but she has to fill out paperwork every year to keep her license from being revoked.? Patient stated that when her the paperwork was lost and she has contacted [place] to request another application from the [place] [employer] ([employer]).? I recommend the patient undergo surface EEG recording, head MRI with and without contrast, and restart her Lamictal and Klonopin.? Patient stated that she has not been taking the Lamictal secondary to insurance issues.? She stated that now she has insurance with [employer] since she is employed with [facility].? Patient stated that she requested that her Klonopin be restarted when she was seen nurse kavon Zavala but she stated that Klonopin was not prescribed.? I recommended the patient undergo a trough Lamictal level as well as lab for CBC, comprehensive metabolic panel, vitamin D, methylmalonic acid, B12, folate, vitamin B6, thyroid profile and magnesium in approximately 5 weeks once she is taking 100 mg twice a day of Lamictal Juvenile myoclonic epilepsy.? I agreed to restart the patient's Klonopin at 1 mg p.o. nightly.? Since the patient had not experienced any seizures associated with altered awareness since 2009, the patient was not placed on any restrictions with regards to her juvenile myoclonic epilepsy. The patient underwent trough Lamictal level on 04/19/2023. The patient's Lamictal level was therapeutic at 6.1 (therapeutic range 2.5-15). The patient underwent a 71-minute surface EEG recording. This study was an abnormal awake, stage I and stage II sleep recording secondary to occasional rare sharply contoured 4 to 5 Hz theta slowing seen over the left hemisphere in the posterior leads that T5 and L1 and on one occasion a single rare spike was seen over the left hemisphere at F7, T3 and T5 with phase reversal at T3 during stage II sleep. Findings consistent with patient's history of intractable epilepsy. Note: No active seizure activity was seen. The patient was doing well with no issues and actually had just reinstated her driving privileges. 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 The medical staff observed the patient having the myoclonic jerks and the patient was evaluated blood pressure was 174/113 heart rate 84 O2 saturations 97%. Respirations 16. I was informed of the patient's myoclonic jerks since I was on in the clinic down the hallway. Upon initial evaluation the patient displayed some intermittent myoclonic jerks without altered awareness. I recommended Ativan 1 mg. But, prior to the patient receiving the Ativan she experienced recurrent myoclonic jerks followed by altered awareness and then she was witnessed to experience a generalized tonic-clonic seizure lasting less than 1 minute followed by postevent drooling and sleepiness for several minutes. The rapid response team was contacted and the patient was taken to the [facility] emergency room bed #12. I accompanied the rapid response team to the emergency room with the patient and I spoke with Dr. Love via phone prior to transfer to [facility] 1 mg Ativan and start IV Depacon 1 g load and IV normal saline 1 L. In the emergency room the patient did not experience any further seizures. Ativan was administered without any issues and patient was started on IV Depacon as ordered. I recommended continuing the patient's home medications for seizures which include Lamictal 150 mg p.o. twice daily and Klonopin 1 mg p.o. nightly. Also recommended starting Depakote ER 250 mg p.o. twice daily and have patient follow-up in the neurology clinic at [facility] in approximately 1 to 2 weeks with repeat surface EEG recording on 08/07/2023. Patient will also obtain trough Depakote level on 07/27/2023 and Ativan was ordered for 1 mg IV every 6 hours as needed seizures and patient was placed on seizure precautions which includes no driving or participating in activity that would endanger herself or others in the event she experienced a seizure while participating in those activities per state law. Past medical history: Juvenile myoclonic epilepsy diagnosed at age 15 Grand mal seizures, last reported grand mal seizure was 2009 following hysterectomy Status post hysterectomy 2007 Hypertension Vitamin D deficiency, patient on vitamin D replacement Drug allergies: Codeine which resulted in a rash Morphine which resulted in a rash Current medications: Lamictal ER 150 mg p.o. twice daily for seizure prophylaxis Klonopin 1 mg p.o. nightly for seizure prophylaxis Lisinopril 20 mg p.o. daily Mobic 7.5 mg p.o. daily Vitamin D3 50,000 international units p.o. weekly Past medications: Depakote which resulted in hair loss Topamax which controlled her seizures Klonopin which controlled her seizures Xanax which controlled her seizures Habits: The patient smoked but quit 2 years ago.? Patient denies other drug use Family history: Remarkable for a daughter with juvenile myoclonic epilepsy Remarkable for a maternal aunt with possible seizures Occupation: Patient employed at [employer] Review of Systems General: Reports: 10 or more systems reviewed and unremarkable except in HPI and below Neuro: Reports: seizure-like activity Psych: Reports: other (Patient denies being homicidal or suicidal) Medications/Allergies Home Medications Medication Instructions Recorded Confirmed Last Taken Type meloxicam 7.5 mg tablet 7.5 mg PO DAILY #14 tabs 07/16/23 07/26/23 07/26/23 Rx cholecalciferol (vitamin D3) 1,250 50,000 unit PO Q7D 07/26/23 07/26/23 07/25/23 History mcg (50,000 unit) capsule clonazepam 1 mg tablet 1 mg PO BEDTIME 07/26/23 07/26/23 07/25/23 History lamotrigine 50 mg tablet,extended 150 mg PO BID 07/26/23 07/26/23 07/26/23 History release 24 hr Allergies Allergy/AdvReac Type Severity Reaction Status Date / Time carbamazepine [From Tegretol] Allergy ADR-Seizure Verified 07/26/23 09:34 codeine Allergy ALGY-Hives Verified 07/26/23 09:34 morphine Allergy ALGY-Hives Verified 07/26/23 09:34 phenobarbital Allergy ADR-Seizure Verified 07/26/23 09:34 Current Medications Generic Name Dose Route Start Last Admin Trade Name Freq PRN Reason Stop Dose Admin Valproic Acid 1,000 mg/ Sodium 60 mls @ 55 mls/hr 07/26/23 08:53 07/26/23 09:12 Chloride IV 07/26/23 09:58 55 mls/hr ONCE ONE Administration PFSH Acute PFSH: Medical History (Updated 07/26/23 @ 08:58 by Marcos Archer DO) Hypertension Juvenile myoclonic epilepsy, intractable, without status epilepticus Surgical History (Updated 07/26/23 @ 08:58 by Marcos Archer DO) Hx of appendectomy Hx of colonoscopy with polypectomy Hx of hysterectomy No pertinent past surgical history Family History Grandmother Cancer Heart attack Mother Hypertension Daughter Epilepsy Vitals/I&O/Wt Last Vital Signs Temp 98.2 F 07/26/23 09:14 Pulse 93 07/26/23 09:14 Resp 18 07/26/23 09:24 BP 161/95 07/26/23 09:14 Pulse Ox 98 07/26/23 09:24 O2 Del Method Room Air 07/26/23 09:24 Physical Exam Narrative: Blood pressure 174/113 heart rate 84 O2 saturation 97% on room air respirations 16. Repeat vitals Prior to the patient's transfer to the health care emergency department room #12: Blood pressure 168/95 heart rate 86 O2 saturation 97% on room air The patient is currently alert and mental status has remarkably improved. Later the patient was mildly sleepy secondary to being administered 1 milligram of Ativan intravenously. Pupils 4 mm round reactive light and accommodation. Extraocular movements intact. Head atraumatic. Neck supple. Cranial nerves II through XII intact. Throat clear without obvious signs of tongue bites. Lungs clear. Heart regular rhythm and rate. Extremities were negative for clubbing or cyanosis. Data 07/26/23 08:46 07/26/23 08:46 A&P Assessment and plan (1) Juvenile myoclonic epilepsy, intractable, without status epilepticus: Impression: 1. Intractable juvenile myoclonic epilepsy with recurrent myoclonic jerks which progressed to altered awareness and grand mal seizure on 07/16/2023 2. Vitamin D deficiency, patient on vitamin D replacement 3. Hypertension Plan: 1. Patient administered Ativan 1 mg in the emergency department room #12 2. Patient started on IV Depacon 1 g IV load x1 dose for intractable epilepsy 3. Trough Depakote level on 07/27/2023 4. Continue Lamictal ER 150 mg p.o. twice daily 5. Continue Klonopin 1 mg p.o. nightly 6. Start Depakote ER 250 mg p.o. twice daily on 07/27/2023 7. Ativan 1 mg IV every 6 hours as needed recurrent seizures 8. Agree with observation admission to monitor for any recurrent seizures 9. IV normal saline at 70 cc/h for 1 Liter and continue fluids if needed 10. Anticipate patient will be stable for discharge on 07/27/2023 if she does not experience any further seizures 11. Please schedule patient for follow-up in [facility] neurology clinic on 08/07/2023 12. Patient scheduled for repeat surface EEG recording for 42 minutes on 08/07/2023 13. Reinstate seizure precautions which includes but not limited to no driving or participating in any activity that would endanger herself or others in event the patient experienced a seizure while participating in those activities per state law 14. We will plan to adjust Depakote as needed/tolerated 15. We will consider retrial of Topamax for intractable juvenile myoclonic epilepsy if needed (note: If Topamax is prescribed in the near future, will plan to taper and discontinue Depakote or Lamictal) Consult Attestations Medical Necessity Statement: The patient was evaluated by neurology secondary to rapid response and recurrent seizures associated with loss of consciousness/altered awareness Coding Level of Care Code 84613 Diagnoses Juvenile myoclonic epilepsy, intractable, without status epilepticus G40.B19
[2023-07-26 09:58] LABS: Slide Review Slide Review Perform
[2023-07-26 09:59] LABS: Absolute Neutrophil 3.8 10^3/cmm (1.4-6.5); Absolute Segmented Neutrophil 3.8 10/cmm (1.6-7.1); Eosinophils 0 %; Giant Platelets 1+; Lymphocytes 35 %; Monocytes Absolute 0.9 10^3/cmm (0.1-0.6); Platelet Estimate Normal (Normal); Segmented Neutrophils 39 %; Total Cells Counted 100 (0-100)
--- NOTE | 2023-07-26 10:50 | PM.HP ---
Providers/Chief Complaint Admitting Physician: Mario Alberto Conti MD Chief Complaint: Seizure History of Present Illness Diana Alejandro is a 53 year old female presenting to the emergency department following a seizure. She reports she has juvenile myoclonic epilepsy, and occasionally has some myoclonic jerks in the morning upon waking for sleep. Today they did not go away, and ultimately culminated in a generalized seizure witnessed by neurology. She was brought to the emergency department, where she was given Depacon. She reports she is compliant with her Lamictal, at home. She states her last generalized seizure was 10 years ago. No recent illnesses. No fever. Denies any alcohol use. Stopped caffeine/reduced caffeine within the week. Has history of hypertension but is not on any medication now, and does not have a primary care provider. Review of Systems General: Reports: 10 or more systems reviewed and unremarkable except in HPI and below Card: Denies: chest pain Resp: Denies: dyspnea GI: Denies: abdominal pain, hematochezia or melena Medications/Allergies Home Medications Medication Instructions Recorded Confirmed Last Taken Type meloxicam 7.5 mg tablet 7.5 mg PO DAILY #14 tabs 07/16/23 07/26/23 07/26/23 Rx cholecalciferol (vitamin D3) 1,250 50,000 unit PO Q7D 07/26/23 07/26/23 07/25/23 History mcg (50,000 unit) capsule clonazepam 1 mg tablet 1 mg PO BEDTIME 07/26/23 07/26/23 07/25/23 History lamotrigine 50 mg tablet,extended 150 mg PO BID 07/26/23 07/26/23 07/26/23 History release 24 hr Allergies Allergy/AdvReac Type Severity Reaction Status Date / Time carbamazepine [From Tegretol] Allergy ADR-Seizure Verified 07/26/23 09:34 codeine Allergy ALGY-Hives Verified 07/26/23 09:34 morphine Allergy ALGY-Hives Verified 07/26/23 09:34 phenobarbital Allergy ADR-Seizure Verified 07/26/23 09:34 PFSH Acute PFSH: Medical History (Updated 07/26/23 @ 11:16 by Mario Alberto Conti MD) Hypertension Juvenile myoclonic epilepsy, intractable, without status epilepticus Surgical History (Updated 07/26/23 @ 11:13 by Mario Alberto Conti MD) History of cholecystectomy Hx of appendectomy Hx of colonoscopy with polypectomy Hx of hysterectomy No pertinent past surgical history Family History Grandmother Cancer Heart attack Mother Hypertension Daughter Epilepsy Social History (Updated 07/26/23 @ 11:14 by Mario Alberto Conti MD) Smoking and tobacco/nicotine status: former use of tobacco/nicotine Alcohol intake: never Vitals/I&O/Wt Last Vital Signs Temp 98.2 F 07/26/23 09:14 Pulse 93 07/26/23 09:14 Resp 18 07/26/23 09:24 BP 161/95 07/26/23 09:14 Pulse Ox 98 07/26/23 09:24 O2 Del Method Room Air 07/26/23 09:24 Physical Exam Narrative: General exam is no distress HEENT: Atraumatic normocephalic. Oropharynx clear. Tongue with small bite altaf lateral side, right Neck supple no lymphadenopathy thyromegaly Cardiovascular regular rate and rhythm without murmur Lungs clear no wheezing or crackles Abdomen is soft with positive bowel sounds. No obvious organomegaly exam is deferred Extremities no cyanosis, edema, cap refill brisk Skin no rash Neuro no focal deficits Data 07/26/23 08:46 07/26/23 08:46 Other Labs: LFTs are normal Magnesium 2.5 Calcium and albumin are normal Urinalysis essentially negative Lamictal level pending. Urine drug screen negative. Previous head MRI 07/05 no mass A&P Assessment and plan (1) Seizure: Patient has juvenile myoclonic epilepsy, since age 15. She had multiple myoclonic jerks this morning eventually culminating in a generalized seizure witnessed by neurology She is maintained on Lamictal In the emergency department she was loaded on Depacon We will hydrate Observation currently IV fluids Laboratory tomorrow Seizure precautions ICU for location for close observation To start Depakote ER 250 mg twice daily tomorrow Glucose was checked and normal Depakote level tomorrow per neurology instruction Ativan as needed seizure (2) Hypertension: History of hypertension, for which she reports she is not on treatment as she does not have a primary care provider Monitor blood pressures here, start medication if needed. Plan Metabolic acidosis, monitor closely. Elevated creatinine, possible acute kidney injury, monitor closely, suspect this will resolve with hydration Other medical problems as listed in past medical history Full code Low risk for DVT, no SCD prophylaxis needed likely related to seizure Attestations Medical Necessity Statement*: Will need less than 2 midnight stay for evaluation and treatment of seizure Diagnoses Seizure R56.9 Hypertension I10 Time Spent (min) 50
[2023-07-26 10:57] LABS: Add Urine Microscopic? YES; Bilirubin Urine Neg (Negative); Blood Urine Neg (Negative); Glucose Urine UA Norm (Normal); Ketones Urine Negative (Negative); Leukocyte Esterase Urine 1+ (Negative); Nitrate Urine Negative (Negative); Protein Urine Neg (Negative); Specific Gravity, Urine 1.015 (1.005-1.030); Urine Appearance Clear (CLEAR); Urine Color Light yellow (Yellow); Urobilinogen Urine Norm (Negative); pH Urine 7 (5-7)
[2023-07-26 11:03] LABS: Amorphous Sediment Urine TRACE /hpf; Bacteria Urine TRACE /hpf; Hyaline Casts Urine 0-4 /lpf; Mucus Urine TRACE /hpf; Squamous Epithelial Cell Urine 0-4 /hpf (0-5); WBC Urine 0-4 /hpf (0-5)
[2023-07-26 11:04] LABS: Add Urine Culture? No
[2023-07-26 11:13] LABS: Amphetamines Screen Urine Negative (Negative); Barbiturates Screen Urine Negative (Negative); Benzodiazepines Screen Urine Negative (Negative); Cocaine Screen Urine Negative (Negative); Opiate Screen Urine Negative (Negative); PCP Screen Urine Negative (Negative); THC Screen Urine Negative (Negative)
[2023-07-26] MEDS: sodium chloride 0.9% 1,000 ML 75 ML IV (11:40)
[2023-07-26] MEDS: acetaminophen 325 mg Tablet 650 MG PO ×2 (11:40→18:18)
[2023-07-26] MEDS: ketorolac 30 mg/mL INJ IVP (13:08)
--- NOTE | 2023-07-26 13:10 | PC.NURSE ---
Patient has home medication Lamotrigine, at bedside as well as red colored purse. Patient does not want either to be placed in pixys at this time.
[2023-07-26] MEDS: CLONazepam 1 mg Tablet PO (20:17)
[2023-07-26] MEDS: ketorolac 30 mg/mL INJ 15 MG IVP (21:10)
[2023-07-27] VITALS (11 sets, daily range): BP systolic 80–134; BP diastolic 65–90; PULSE 71–78; RESP 15–24; TEMP 36.8; O2SAT 95–98
[2023-07-27] MEDS: sodium chloride 0.9% 1,000 ML 75 ML IV (01:50)
[2023-07-27 04:55] LABS: Basophils % 0.7 %; Eosinophils # 0.1 10^3/uL (0.0-0.8); Eosinophils % 1.9 %; Hematocrit 38.7 % (36-47); Lymphocytes # 2.2 10^3/uL (0.8-4.8); Mean Corpuscular Hemoglobin 28.3 pg (27-33); Mean Corpuscular Volume 88.4 fl (85-98); Mean Platelet Volume 11.1 fL (7.4-10.4); Monocytes # 0.5 10^3/uL (0.2-0.9); Monocytes % 11.3 %; Neutrophils # 1.44 10^3/uL (1.8-7.7); Neutrophils % 33.9 %; Nucleated Red Blood Cells % 0 %; Platelet Count 200 10^3/cmm (157-399); Red Blood Count 4.38 10^6/uL (3.85-5.65); Red Cell Distribution Width 13.2 % (12.1-15.1); White Blood Count 4.25 10^3/uL (3.29-11.43)
[2023-07-27 05:25] LABS: Alanine Aminotransferase 14 U/L (0-33); Albumin Level 3.4 g/dL (3.5-5.2); Alkaline Phosphatase 71 U/L (35-105); Anion Gap 13.9 (5-19); Aspartate Amino Transferase 16 U/L (0-32); Blood Urea Nitrogen 9 mg/dL (6-20); Calcium 8.7 mg/dL (8.5-10.5); Carbon Dioxide 23 mmol/L (22-29); Chloride 108 mmol/L (98-107); Globulin 2.6 g/dL (1.3-4.6); Glomerular Filtration Rate 75.6 mL/min (90-130); Glucose 127 mg/dL (65-115); Osmolality Calculated 292 mOsm/kg (285-295); Potassium 3.9 mmol/L (3.5-5.1); Sodium 141 mmol/L (136-145); Total Bilirubin 0.3 mg/dL (0.15-1.2)
[2023-07-27 05:28] LABS: Valproic Acid Level 31.5 ug/mL (50-100)
--- NOTE | 2023-07-27 08:19 | P.DS_ITS ---
Discharge Providers Date of Admission: 07/26/23 10:58 Date of Discharge: July 27, 2023 Attending Provider at Admission: Mario Alberto Conti MD Attending Provider at Discharge: Mario Alberto Conti MD Diagnoses at Discharge Discharge Diagnosis (1) Seizure: Status: Acute (2) Hypertension: Status: Acute Reason for Visit Reason for Visit: Seizure Hospital Course Hospital Course Diana presented to the hospital after generalized seizure. 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 She was loaded with Depacon in the emergency department. She was admitted to the ICU for close observation. Her Klonopin and lamotrigine was continued. While in the hospital she remained stable without any seizures. The following morning it was thought she could be discharged home, with close follow-up with neurology as well as establishing a primary care provider. She had no evidence of electrolyte abnormalities on admission. She was given opportunity ask questions, and agreed with the plan. Physical Exam Narrative: General exam no distress Neck supple Cardiovascular regular rate rhythm Lungs clear Abdomen soft Extremities no cyanosis clubbing or edema Neuro no obvious focal deficits Discharge Data Studies Completed and Pending Pending at discharge Category Date Time Status Lamotrigine (Lamictal) Level Timed Lab 07/26/23 08:46 Received Laboratory Results WBC 4.25 10^3/uL (3.29-11.43) 07/27/23 04:25 RBC 4.38 10^6/uL (3.85-5.65) 07/27/23 04:25 Hgb 12.40 g/dL (11.27-16.99) 07/27/23 04:25 Hct 38.7 % (36-47) 07/27/23 04:25 MCV 88.4 fl (85-98) 07/27/23 04:25 MCH 28.3 pg (27-33) 07/27/23 04:25 MCHC 32.0 g/dL (30-55) 07/27/23 04:25 RDW 13.2 % (12.1-15.1) 07/27/23 04:25 Plt Count 200 10^3/cmm (157-399) 07/27/23 04:25 MPV 11.1 fL (7.4-10.4) H 07/27/23 04:25 Neut % (Auto) 33.9 % 07/27/23 04:25 Lymph % (Auto) 52.0 % 07/27/23 04:25 [place] % (Auto) 11.3 % 07/27/23 04:25 Eos % (Auto) 1.9 % 07/27/23 04:25 Baso % (Auto) 0.7 % 07/27/23 04:25 Neut # (Auto) 1.44 10^3/uL (1.8-7.7) L 07/27/23 04:25 Lymph # (Auto) 2.2 10^3/uL (0.8-4.8) 07/27/23 04:25 [place] # (Auto) 0.5 10^3/uL (0.2-0.9) 07/27/23 04:25 Eos # (Auto) 0.1 10^3/uL (0.0-0.8) 07/27/23 04:25 Baso # (Auto) 0.0 10^3/uL (0.0-0.1) 07/27/23 04:25 Nucleated RBC % (auto) 0 % 07/27/23 04:25 Total Counted 100 (0-100) 07/26/23 08:46 Atypical Lymphs % 17.0 % (0-5) H 07/26/23 08:46 Absolute Neutrophils 3.8 10^3/cmm (1.4-6.5) 07/26/23 08:46 Segmented Neutrophils 39 % 07/26/23 08:46 Abs Segm Neuts (Man) 3.8 10/cmm (1.6-7.1) 07/26/23 08:46 Band Neutrophils 0.0 % 07/26/23 08:46 Abs Band Neuts (Man) 0.0 10^3/cmm (0.0-1.2) 07/26/23 08:46 Absolute Lymphocytes 5.0 10^3/cmm (1.2-3.4) H 07/26/23 08:46 Lymphocytes (Manual) 35 % 07/26/23 08:46 Monocytes (Manual) 9.0 % 07/26/23 08:46 Absolute Monocytes 0.9 10^3/cmm (0.1-0.6) H 07/26/23 08:46 Eosinophils (Manual) 0 % 07/26/23 08:46 Absolute Eosinophils 0.0 10^3/cmm (0.0-0.7) 07/26/23 08:46 Basophils (Manual) 0.0 % 07/26/23 08:46 Absolute Basophils 0.0 10^3/cmm (0.0-0.2) 07/26/23 08:46 Nucleated RBCs # 0.0 /100WBC 07/27/23 04:25 Platelet Estimate Normal (Normal) 07/26/23 08:46 Giant Platelets 1+ H 07/26/23 08:46 Sodium 141 mmol/L (136-145) 07/27/23 04:25 Potassium 3.9 mmol/L (3.5-5.1) 07/27/23 04:25 Chloride 108 mmol/L (98-107) H 07/27/23 04:25 Carbon Dioxide 23 mmol/L (22-29) 07/27/23 04:25 Anion Gap 13.9 (5-19) 07/27/23 04:25 BUN 9 mg/dL (6-20) 07/27/23 04:25 Creatinine 0.8 mg/dL (0.5-0.9) 07/27/23 04:25 GFR Calculation 75.6 mL/min (90-130) L 07/27/23 04:25 Glucose 127 mg/dL (65-115) H 07/27/23 04:25 Calculated Osmolality 292 mOsm/kg (285-295) 07/27/23 04:25 Calcium 8.7 mg/dL (8.5-10.5) 07/27/23 04:25 Magnesium 2.5 mg/dL (1.7-2.3) H 07/26/23 08:46 Total Bilirubin 0.3 mg/dL (0.15-1.2) 07/27/23 04:25 AST 16 U/L (0-32) 07/27/23 04:25 ALT 14 U/L (0-33) 07/27/23 04:25 Alkaline Phosphatase 71 U/L (35-105) 07/27/23 04:25 Total Protein 6.0 g/dL (6.6-8.7) L D 07/27/23 04:25 Albumin 3.4 g/dL (3.5-5.2) L 07/27/23 04:25 Globulin 2.6 g/dL (1.3-4.6) 07/27/23 04:25 Urine Color Light yellow (Yellow) 07/26/23 Unknown Urine Appearance Clear (CLEAR) 07/26/23 Unknown Urine pH 7 (5-7) 07/26/23 Unknown Ur Specific Grace 1.015 (1.005-1.030) 07/26/23 Unknown Urine Protein Neg (Negative) 07/26/23 Unknown Urine Glucose (UA) Norm (Normal) 07/26/23 Unknown Urine Ketones Negative (Negative) 07/26/23 Unknown Urine Blood Neg (Negative) 07/26/23 Unknown Urine Nitrate Negative (Negative) 07/26/23 Unknown Urine Bilirubin Neg (Negative) 07/26/23 Unknown Urine Urobilinogen Norm mg/dL (Negative) 07/26/23 Unknown Ur Leukocyte Esterase 1+ (Negative) H 07/26/23 Unknown Urine RBC None /hpf (0-2) 07/26/23 Unknown Urine WBC 0-4 /hpf (0-5) H 07/26/23 Unknown Ur Squamous Epith Cells 0-4 /hpf (0-5) H 07/26/23 Unknown Amorphous Sediment Trace /hpf 07/26/23 Unknown Urine Bacteria Trace /hpf (NONE) 07/26/23 Unknown Hyaline Casts 0-4 /lpf H 07/26/23 Unknown Urine Mucus Trace /hpf 07/26/23 Unknown Urine Opiates Screen Negative ng/mL (Negative) 07/26/23 Unknown Ur Barbiturates Screen Negative ng/mL (Negative) 07/26/23 Unknown Valproic Acid 31.5 ug/mL (50-100) L 07/27/23 04:25 Ur Phencyclidine Scrn Negative ng/mL (Negative) 07/26/23 Unknown Ur Amphetamines Screen Negative ng/mL (Negative) 07/26/23 Unknown U Benzodiazepines Scrn Negative ng/mL (Negative) 07/26/23 Unknown Urine Cocaine Screen Negative ng/mL (Negative) 07/26/23 Unknown U Marijuana (THC) Screen Negative ng/mL (Negative) 07/26/23 Unknown Vitals Last Vital Signs Temp 98.3 F 07/26/23 21:30 Pulse 76 07/27/23 07:00 Resp 15 07/27/23 07:00 BP 100/75 07/27/23 07:00 Pulse Ox 96 07/27/23 07:00 O2 Del Method Room Air 07/27/23 06:00 Discharge Plan Discharge Patient Disposition: Home Condition: Stable Prescriptions: New divalproex 250 mg Tablet Extended Release 24 Hr 250 mg PO BID Qty: 60 0RF Continued clonazepam 1 mg tablet 1 mg PO BEDTIME cholecalciferol (vitamin D3) 1,250 mcg (50,000 unit) capsule 50,000 unit PO Q7D lamotrigine 50 mg tablet extended release 24hr 150 mg PO BID Discontinued meloxicam 7.5 mg tablet 7.5 mg PO DAILY Qty: 14 0RF Discharge Orders: Discharge Order (Routine); Ordered 07/27/23 Ordered By: Mario Alberto Conti Referrals: Krzysztof Vickers MD [Physician] - 2 weeks (We have notified your physician's clinic of the need for a follow-up appointment to be scheduled. If you have not heard from them within the next 2 business days, please call them directly. Please contact patient for this appointment /or patient Diana to call and confirm /EEG/appointment ) Altagracia Corley FNP [Staff Physician] - 08/17/23 9:40 am (This follow up appointment greater than 7 days post hospital follow up /Walk in clinic available if needed.) Discharge Diet: Regular Discharge Activity: Increase activity as tolerated Patient Instructions: Divalproex (By mouth) (Depakote, Depakote ER, Depakote Sprinkles), Epilepsy (DC), Hypertension (DC), Opioid Safety, Seizures Activity Restrictions/Additional Instructions: Please make sure patient's follow-up neurology appointment is scheduled for August 07. Seizure precautions as per neurology, no swimming alone, no driving until follow-up and then neurology will determine Take all medicine as prescribed Discharge Attestations Time Spent in Discharge Care*: greater than 30 min (31) Quality Metrics Clinical Quality Measures [ No reported AMI, CVA or VTE this stay] Coding Level of Care Code 83734 Total time (in minutes) for Discharge: 31 Diagnoses Seizure R56.9 Hypertension I10
[2023-07-27] MEDS: divalproex ER 250 mg Tablet (24H) PO (09:04)
--- NOTE | 2023-07-27 09:51 | PC.NURSE ---
Patient received all discharge orders, all safety measures met, All IVs removed. Discharge instructions and restrictions given, patient verbalized understanding. Prescriptions sent to preferred pharmacy.
[2023-08-01 10:09] LABS: Lamotrigine (Lamictal) Level 1.9 mcg/mL (2.5-15.0)
== END 2023-07-27 09:50 | disposition home or self-care (01) ==
LOC: ER 09:11 → ICU 18:59
PROVIDERS: Admitting Provider Internal Medicine; Emergency Provider Family Medicine; Visit Provider Internal Medicine
DX: R56.9 Unspecified convulsions (principal); I10 Essential (primary) hypertension; Z87.891 Personal history of nicotine dependence
CPT/HCPCS: 36415; 80053; 80164; 80175; 80306; 81001; 83735; 85007; 85025; 96361; 96365; 96375; 96376; 99285; G0378; J1885; J2060; J3490; J7030

== ENCOUNTER 2023-08-01 20:54 | Emergency (ER) | payer OTHER, SELFPAY ==
[2023-08-01 20:57] VITALS: BP 194/120; PULSE 96; RESP 16; TEMP 36.5; O2SAT 97; BMI 29.7
--- NOTE | 2023-08-01 21:28 | CTR_ITS ---
PROCEDURE INFORMATION: Exam: CT Head Without Contrast Exam date and time: 08/01/2023 9:36 PM Age: 53 years old Clinical indication: Injury or trauma; Fall; Blunt trauma (contusions or hematomas) TECHNIQUE: Imaging protocol: Computed tomography of the head without contrast. Radiation optimization: All CT scans at this facility use at least one of these dose optimization techniques: automated exposure control; mA and/or kV adjustment per patient size (includes targeted exams where dose is matched to clinical indication); or iterative reconstruction. REPORTING DATA: Count of CT and Cardiac NM exams in prior 12 months: This patient has received 0 known CTs and 0 known cardiac nuclear medicine studies in the 12 months prior to the current study. COMPARISON: MR head wo/w con [id number] 07/05/2023 3:30 PM RADIATION DOSE METRICS: Total DLP (mGy-cm): 1052 FINDINGS: Brain: No acute intracranial hemorrhage. No territorial region of bowers-white dedifferentiation. No extra-axial collection. No mass effect or midline shift. Cerebral ventricles: No acute hyrocephalus. Paranasal sinuses: Visualized sinuses are well-aearted. No fluid levels. Mastoid air cells: Visualized mastoid air cells are well aerated. Orbital cavities: No acute orbital abnormality. Bones/joints: No acute calvarial fracture. Soft tissues: No acute abnormality. CT/CT head wo con* [id number] IMPRESSION: No acute findings.
--- NOTE | 2023-08-01 21:28 | W.ED.FALL ---
HPI - Fall General: Chief Complaint: Fall Stated Complaint: Head Injury Time Seen by Provider: 08/01/23 21:03 History of Present Illness: 53-year-old female presents emergency department with complaints of a headache after having approximately 3 foot fall onto a tile floor. She states she was taking a step and when she stepped up onto the stair she missed stepped and fell backwards hitting her head on the tile floor. She states she is nauseated and does have a 6 out of 10 throbbing headache from the back of her head to the very front. She states she does have a history of epilepsy. She denies neck or back pain at present. She states that she does not take anticoagulation medication. Associated symptoms-after fall: Reports headache(s) Review of Systems General: Reports: 10 or more systems reviewed and unremarkable except in HPI and below GI: Reports: nausea Neuro: Reports: headache(s) [facility] ED PFSH: Medical History (Updated 08/01/23 @ 21:33 by Tony Smith MD) Hypertension Juvenile myoclonic epilepsy, intractable, without status epilepticus Surgical History (Updated 07/26/23 @ 11:13 by Mario Alberto Conti MD) History of cholecystectomy Hx of appendectomy Hx of colonoscopy with polypectomy Hx of hysterectomy No pertinent past surgical history Family History Grandmother Cancer Heart attack Mother Hypertension Daughter Epilepsy Social History (Updated 07/26/23 @ 11:14 by Mario Alberto Conti MD) Smoking and tobacco/nicotine status: former use of tobacco/nicotine Alcohol intake: never Physical Exam Narrative: EXAM NARRATIVE: Constitutional: the patient appears well nourished and with normal development. Vital signs reviewed as documented. HENMT: Normocephalic, atraumatic. Extermal ears with normal appearance without drainage. Nose without drainage, normal appearance. Mucus membranes moist. Neck is supple, No jugular venous distension, trachea is midline, no appreciable carotid bruits. No lymphadenopathy. No meningeal signs. Flexion, extension and lateral rotation is without pain. Eyes: Pupils are equal, round, reactive to light and accommodation. No scleral icterus. Extra-ocular movement are intact. Thorax is symmetrical and with equal rise and fall with respirations. Resp: Lungs are clear to auscultation. No wheezes, rales, crackles or ronchi at present. Cardio: Regular rate and rhythm. Positive S1, S2. No appreciable murmurs, rubs or gallops. GI: Abdominal exam reveals normal bowel sounds to all quadrants. No organomegaly. No obvious palpable masses noted. No hepatomegally appreciated. Soft, nontender to palpation. Extremity: Extremities are non-edematous and both femoral and pedal pulses are 2+ and equal bilaterally. Moves all extremities well, sensation in all extremities. Neuro: Alert and oriented x4, person, place, time and situation. Cranial nerves II through XII are grossly intact, there is no focal neurological deficits that I can appreciate at present. Motor strength in the upper and lower extremities are equal and bilateral 5/5. Psych: Cooperative, calm, normal thought process, appropriate judgment. Skin: No lesions, rashes. No gross abnormalities noted. Back: Symmetrical, no obvious deformity, No CVA tenderness Course Vital Signs: Vital signs: Vital Signs Temperature 97.7 F 08/01/23 20:57 Pulse Rate 96 08/01/23 20:57 Respiratory Rate 18 08/01/23 22:18 Blood Pressure 194/120 08/01/23 20:57 Pulse Oximetry 97 08/01/23 22:18 Oxygen Delivery Me thod Room Air 08/01/23 22:18 MDM - Fall Medical Decision Making Physical exam completed,I will obtain a CT scan of the head without contrastGiven the patient's presenting complaint and distance of fall. She states she does have a significant headache that is worse with walking. I will provide her Toradol intramuscular shot as well as Tylenol and Zofran for her nausea. Lab Data Radiology Impressions Head CT 08/01/23 21:28 IMPRESSION: No acute findings. All radiology interpretation(s) finalized by discharge Discharge Plan Discharge Patient Disposition: Home Clinical Impression: Fall (on) (from) other stairs and steps, initial encounter, Headache, Nausea Condition: Stable Prescriptions: No Action divalproex 250 mg tablet extended release 24 hr 250 mg PO DAILY Qty: 60 0RF Rx Instructions: bedtime lamotrigine 50 mg tablet extended release 24hr 100 mg PO BID Rx Instructions: take 2 in the morning and 2 at bedtime clonazepam 1 mg tablet 1 mg PO BEDTIME cholecalciferol (vitamin D3) 1,250 mcg (50,000 unit) capsule 50,000 unit PO Q7D Discharge Orders: Discharge ED (Routine); Ordered 08/01/23 Ordered By: Tony Smith Discharge Diet: Advance as tolerated Discharge Activity: Resume usual activity Patient Instructions: Opioid Safety, Pain Management Activity Restrictions/Additional Instructions: Activity Restrictions/Additional Instructions: Thank you for choosing [facility] for your healthcare needs today. Please realize that you were seen in the Emergency Department and that we are providing you with an emergency medical screening exam and this may not be complete and all inclusive of all the testing and or medical work-up that you may need to determine your ailment or severity of your illness. It is very important that you follow-up as instructed with your Primary care provider or Specialist for additional evaluation and to discuss your medical treatment plan. You may return to the Emergency Department should you have concerns or if your condition changes or worsens in any way. Coding Level of Care Code ED Edge Trimming Machine Operator for Paul Macdonald
[2023-08-01] MEDS: ketorolac 60 mg/2 mL INJ IM (21:35)
[2023-08-01] MEDS: acetaminophen 500 mg Tablet 1000 MG PO (21:35)
[2023-08-01] MEDS: ondansetron 4 MG Tablet PO (21:35)
[2023-08-01 22:18] VITALS: RESP 18; O2SAT 97
[2023-08-01 22:52] VITALS: PULSE 87; RESP 18; O2SAT 97
== END 2023-08-01 22:54 | disposition home or self-care (01) ==
PROVIDERS: Emergency Provider Internal Medicine
DX: R51.9 Headache, unspecified (principal); R11.0 Nausea; Z87.891 Personal history of nicotine dependence; I10 Essential (primary) hypertension
CPT/HCPCS: 70450; 96372; 99284; J1885; Q0162

== ENCOUNTER 2023-09-06 07:36 | Outpatient (CLI) | payer OTHER, SELFPAY | END 2023-09-06 07:37 | disposition home or self-care (01) | LOC: LAB 07:38 | PROVIDERS: PCP Psychiatry & Neurology Neurology; Visit Provider Psychiatry & Neurology Neurology | DX: G40.B19 Juvenile myoclonic epilepsy, intractable, without status epilepticus (principal) | CPT/HCPCS: 36415; 80175 ==

== ENCOUNTER → 2023-09-25 07:49 | Outpatient (BNVA) | payer OTHER, SELFPAY | PROVIDERS: PCP Psychiatry & Neurology Neurology; Visit Provider Podiatrist Foot & Ankle Surgery | DX: M79.674 Pain in right toe(s) (principal); M79.675 Pain in left toe(s); G57.91 Unspecified mononeuropathy of right lower limb; M20.11 Hallux valgus (acquired), right foot | CPT/HCPCS: 73630 ==

== ENCOUNTER 2024-01-06 18:50 | Emergency (ER) | payer SELFPAY ==
[2024-01-06 18:56] VITALS: BP 133/98; PULSE 98; RESP 15; TEMP 36.7; O2SAT 96
--- NOTE | 2024-01-06 19:03 | ED_ITS ---
HPI - Dizziness 2 General: Chief Complaint: Dizziness Stated Complaint: dizzy n/v weak Time Seen by Provider: 01/06/24 19:01 History of Present Illness: HPI Narrative: 53-year-old female comes in today with c omplaints of dizziness for the last 3 days. Patient reports that usually she will have some dizzy spells with position changes but this has been different. Patient also reports a mild headache with it. Patient reports any movement causes nausea and she is also had some episodes of emesis with the movement. Patient appears nontoxic. Patient was unable to work tonight due to the discomfort. Patient appears in no pain. Associated symptoms: Reports headache(s) Review of Systems 2 General: Reports: 10 or more systems reviewed and unremarkable except in HPI and below Neuro: Reports: headache(s) and dizziness PFSH ED 2 PFSH: Medical History Juvenile myoclonic epilepsy, intractable, without status epilepticus Hypertension Surgical History History of cholecystectomy Hx of hysterectomy Hx of appendectomy Hx of colonoscopy with polypectomy No pertinent past surgical history Family History Grandmother Cancer Heart attack Mother Hypertension Daughter Epilepsy Social History Smoking and tobacco/nicotine status: former use of tobacco/nicotine Alcohol intake: never Physical Exam 2 Const: COMMON NORMALS: alert HENMT: COMMON NORMALS: atraumatic HEAD & SCALP: atraumatic TYMPANIC MEMBRANE: TM abnormal TM laterality: bilateral bulging and erythematous T HROAT: posterior oropharynx normal Neck/C-Spine: COMMON NORMALS: full ROM Resp: COMMON NORMALS: normal respiratory effort and clear to auscultation bilaterally AUSCULTATION: clear to auscultation bilaterally Cardio: COMMON NORMALS: regular rate and regular rhythm RATE: regular rate RHYTHM: regular rhythm GI: COMMON NORMALS: Soft to palpation and non-tender PALPATION: Yes Soft to palpation Back/Pelvis: COMMON NORMALS: thoracic and lumbar spine normal to inspection Extremity: COMMON NORMALS: full ROM Neuro: SENSORIUM/ORIENTATION: Yes alert Skin: COMMON NORMALS: turgor normal GENERAL SKIN EXAM: turgor normal Course 2 Vital Signs: Vital signs: Vital Signs Temperature 98.0 F 01/06/24 18:56 Pulse Rate 98 01/06/24 18:56 Respiratory Rate 15 01/06/24 18:56 Blood Pressure 133/98 01/06/24 18:56 Pulse Oximetry 96 01/06/24 18:56 Oxygen Delivery Me thod Room Air 01/06/24 18:56 MDM - Dizziness Medical Decision Making 53-year-old female comes in today for complaints of headache and nausea. Patient is also reported some vomiting. Patient appears nontoxic. Patient appears in no pain. Patient has a history of epileptic seizures, high blood pressure, and mild asthma. Lungs are clear to auscultation. NIH stroke scale is 0. Patient moves all extremities well. No focal neurodeficits. Vital signs are normal. Differential diagnosis includes not limited to M?ni?re's disease, BPV, rhinosinusitis, stroke syndrome, carotid stenosis. Laboratory values were unremarkable. No signs of anemia or significant renal dysfunction. CT of the head noted no significant changes with intracranial bleeding but did note complete opacification of the sinuses which is different from July 2023. Believe patient probably has a acute rhinosinusitis. Will start her on some steroids and antibiotics to see if that would help with her improvement of symptoms. Recommend follow-up with primary care, return to ED for worsening symptoms. Lab Data 01/06/24 19:40 01/06/24 19:[address] 01/06/24 19:13 IMPRESSION: 1. No acute intracranial abnormality . Further evaluation with MR as clinically warranted. 2. Complete opacification of the bilateral sphenoid sinuses/sinusitis is new from 08/01/2023. Laboratory Results WBC 5.59 10^3/uL (3.29-11.43) 01/06/24 19:40 RBC 4.91 10^6/uL (3.85-5.65) 01/06/24 19:40 Hgb 14.00 g/dL (11.27-16.99) 01/06/24 19:40 Hct 42.4 % (36-47) 01/06/24 19:40 MCV 86.4 fl (85-98) 01/06/24 19:40 MCH 28.5 pg (27-33) 01/06/24 19:40 MCHC 33.0 g/dL (30-55) 01/06/24 19:40 RDW 13.2 % (12.1-15.1) 01/06/24 19:40 Plt Count 239 10^3/cmm (157-399) 01/06/24 19:40 MPV 11.3 fL (7.4-10.4) H 01/06/24 19:40 Neut % (Auto) 49.7 % 01/06/24 19:40 Lymph % (Auto) 39.4 % 01/06/24 19:40 [place] % (Auto) 8.8 % 01/06/24 19:40 Eos % (Auto) 1.4 % 01/06/24 19:40 Baso % (Auto) 0.7 % 01/06/24 19:40 Neut # (Auto) 2.78 10^3/uL (1.8-7.7) 01/06/24 19:40 Lymph # (Auto) 2.2 10^3/uL (0.8-4.8) 01/06/24 19:40 [place] # (Auto) 0.5 10^3/uL (0.2-0.9) 01/06/24 19:40 Eos # (Auto) 0.1 10^3/uL (0.0-0.8) 01/06/24 19:40 Baso # (Auto) 0.0 10^3/uL (0.0-0.1) 01/06/24 19:40 Nucleated RBC % (auto) 0 % 01/06/24 19:40 Nucleated RBCs # 0.0 /100WBC 01/06/24 19:40 Sodium 143 mmol/L (136-145) 01/06/24 19:40 Potassium 3.8 mmol/L (3.5-5.1) 01/06/24 19:40 Chloride 109 mmol/L (98-107) H 01/06/24 19:40 Carbon Dioxide 21 mmol/L (22-29) L 01/06/24 19:40 Anion Gap 16.8 (5-19) 01/06/24 19:40 BUN 17 mg/dL (6-20) 01/06/24 19:40 Creatinine 0.8 mg/dL (0.5-0.9) 01/06/24 19:40 GFR Calculation 75.6 mL/min (90-130) L 01/06/24 19:40 Glucose 135 mg/dL (65-115) H 01/06/24 19:40 Calculated Osmolality 300 mOsm/kg (285-295) H 01/06/24 19:40 Calcium 8.8 mg/dL (8.5-10.5) 01/06/24 19:40 Total Bilirubin 0.3 mg/dL (0.15-1.2) 01/06/24 19:40 AST 17 U/L (0-32) 01/06/24 19:40 ALT 16 U/L (0-33) 01/06/24 19:40 Alkaline Phosphatase 75 U/L (35-105) 01/06/24 19:40 Total Protein 6.7 g/dL (6.6-8.7) 01/06/24 19:40 Albumin 4.0 g/dL (3.5-5.2) 01/06/24 19:40 Globulin 2.7 g/dL (1.3-4.6) 01/06/24 19:40 All radiology interpretation(s) finalized by discharge Discharge Plan Discharge Patient Disposition: Home Clinical Impression: Acute bacterial rhinosinusitis Condition: Stable Prescriptions: New amoxicillin-pot clavulanate 875-125 mg tablet 1 tab PO BID Qty: 14 0RF prednisone 20 mg tablet 20 mg PO 1XD 5 Days Qty: 5 0RF meclizine 25 mg tablet 25 mg PO BID PRN (Reason: dizziness) Qty: 14 0RF No Action lisinopril 10 mg tablet 10 mg PO DAILY Qty: 60 3RF albuterol sulfate [Ventolin HFA] 90 mcg/actuation HFA aerosol inhaler 2 puff inhalation Q4H PRN (Reason: shortness of breath or wheezing) Qty: 8.5 0RF benzonatate 150 mg capsule 150 mg PO TID PRN (Reason: cough) Qty: 20 0RF clonazepam 1 mg tablet 1 mg PO TID Qty: 180 2RF topiramate [Topamax] 50 mg tablet 50 mg PO DAILY Qty: 180 5RF Rx Instructions: 1 at bedtime lamotrigine 50 mg tablet extended release 24hr 150 mg PO BID Qty: 180 5RF Rx Instructions: 150 mg in AM 150 mg in PM cholecalciferol (vitamin D3) 1,250 mcg (50,000 unit) capsule 50,000 unit PO Q7D Discharge Orders: Discharge ED (Routine); Ordered 01/06/24 Ordered By: Ricci Diego Referrals: Krzysztof Vickers MD [Primary Care Provider] - Discharge Diet: Usual diet Discharge Activity: Increase activity as tolerated Patient Instructions: Rhinosinusitis (ED) Activity Restrictions/Additional Instructions: Change positions slowly. Drink plenty of water and fluids. Take medications as directed. Follow-up with primary care in 2 to 3 days for recheck. Return to ED for worsening symptoms such as high fever, uncontrolled headache, or new concerns. Coding Level of Care Code ED Packager Machine for Paul Macdonald
--- NOTE | 2024-01-06 19:13 | CTR_ITS ---
PROCEDURE INFORMATION: Exam: CT Head Without Contrast Exam date and time: 01/06/2024 7:39 PM Age: 53 years old Clinical indication: Patient HX: C/O dizziness over last several days. History of vertigo. TECHNIQUE: Imaging protocol: Computed tomography of the head without contrast. Radiation optimization: All CT scans at this facility use at least one of these dose optimization techniques: automated exposure control; mA and/or kV adjustment per patient size (includes targeted exams where dose is matched to clinical indication); or iterative reconstruction. COMPARISON: CT head wo con* [id number] 08/01/2023 9:36 PM RADIATION DOSE METRICS: Total DLP (mGy-cm): 1007.78 FINDINGS: Brain: Normal. No hemorrhage. Unremarkable white matter. No mass effect. Cerebral ventricles: No ventriculomegaly. Paranasal sinuses: Complete opacification of the sphenoid sinuses, new from 08/01/2023. Mild opacification of the sphenoethmoidal recesses and posterior aspect of the superior meatus bilaterally. Mastoid air cells: Visualized mastoid air cells are well aerated. Bones/joints: Unremarkable. No acute fracture. Soft tissues: Unremarkable. CT/CT head wo con* [id number] IMPRESSION: 1. No acute intracranial abnormality . Further evaluation with MR as clinically warranted. 2. Complete opacification of the bilateral sphenoid sinuses/sinusitis is new from 08/01/2023.
[2024-01-06] MEDS: meclizine 25 mg tablet PO (19:23)
[2024-01-06] MEDS: sodium chloride 0.9% 1,000 ML 999 ML IV (19:44)
[2024-01-06 19:46] LABS: Basophils % 0.7 %; Eosinophils # 0.1 10^3/uL (0.0-0.8); Eosinophils % 1.4 %; Hematocrit 42.4 % (36-47); Lymphocytes # 2.2 10^3/uL (0.8-4.8); Lymphocytes % 39.4 %; Mean Corpuscular Hemoglobin 28.5 pg (27-33); Mean Corpuscular Volume 86.4 fl (85-98); Mean Platelet Volume 11.3 fL (7.4-10.4); Monocytes # 0.5 10^3/uL (0.2-0.9); Monocytes % 8.8 %; Neutrophils # 2.78 10^3/uL (1.8-7.7); Neutrophils % 49.7 %; Nucleated Red Blood Cells % 0 %; Platelet Count 239 10^3/cmm (157-399); Red Blood Count 4.91 10^6/uL (3.85-5.65); Red Cell Distribution Width 13.2 % (12.1-15.1); White Blood Count 5.59 10^3/uL (3.29-11.43)
[2024-01-06] MEDS: ondansetron 2 mg/ML SDV 2 mL 4 MG IVP (19:51)
[2024-01-06 20:03] LABS: Alanine Aminotransferase 16 U/L (0-33); Alkaline Phosphatase 75 U/L (35-105); Anion Gap 16.8 (5-19); Aspartate Amino Transferase 17 U/L (0-32); Blood Urea Nitrogen 17 mg/dL (6-20); Calcium 8.8 mg/dL (8.5-10.5); Carbon Dioxide 21 mmol/L (22-29); Chloride 109 mmol/L (98-107); Creatinine Clr Calc Pharmacy 92.6266; Globulin 2.7 g/dL (1.3-4.6); Glomerular Filtration Rate 75.6 mL/min (90-130); Glucose 135 mg/dL (65-115); Osmolality Calculated 300 mOsm/kg (285-295); Potassium 3.8 mmol/L (3.5-5.1); Sodium 143 mmol/L (136-145); Total Bilirubin 0.3 mg/dL (0.15-1.2); Total Protein 6.7 g/dL (6.6-8.7)
[2024-01-06] MEDS: cefTRIAXone 1,000 MG in sodium chloride 0.9% (plus) 50 ML 100 MG IV (20:32)
[2024-01-06] MEDS: dexamethasone 10 mg/mL INJ IVP (20:33)
[2024-01-06 20:53] VITALS: BP 135/96; PULSE 81; RESP 16; TEMP 36.7; O2SAT 97
== END 2024-01-06 20:54 | disposition home or self-care (01) ==
PROVIDERS: Emergency Provider Nurse Practitioner Family; PCP Psychiatry & Neurology Neurology
DX: J01.80 Other acute sinusitis (principal); B96.89 Other specified bacterial agents as the cause of diseases classified elsewhere; Z87.891 Personal history of nicotine dependence; I10 Essential (primary) hypertension
CPT/HCPCS: 70450; 80053; 85025; 96365; 96375; 99285; J0696; J1100; J2405; J7030; J8597

== ENCOUNTER 2025-04-18 03:18 | Emergency (ER) | payer SELFPAY ==
--- OUTSIDE RECORDS SUMMARY | 2025-04-18 03:22 | XMS_ITS | Patient Health Record ---
Author Organization [facility] Address [address] [place] [address] Care Team Providers Care Appian Bpm Developer Name Role Phone BarbieLacho antunez Primary Care Provider Allergies Allergen (clinical drug ingredient) Drug/Non Drug Allergy documented on EMR Reaction Allergy Type Onset Date Status codeine Codeine Sulfate angioedema Drug Allergy Active Lortab hives Drug Allergy Active morphine Morphine Sulfate hives Drug Allergy Active Reason For Referral No Information Medications Medication SIG (Take, Route, Frequency, Duration) Notes Start Date End Date Status Nicotine Step 2 14 MG/24HR Patch 24 Hour 1 patch to skin Transdermal Once a day; Duration: 30 day(s) 09/16/2019 Active Nicotine Step 3 7 MG/24HR Patch 24 Hour 1 patch to skin Transdermal Once a day; Duration: 30 day(s) 09/16/2019 Active Anoro Ellipta 62.5-25 MCG/INH Aerosol Powder Breath Activated 1 puff Inhalation Once a day; Duration: 30 days sample given 12/08/2019 12/08/2019 Active amLODIPine Besylate 10 MG Tablet 1 tablet Orally Once a day; Duration: 90 days Active Nicotine Step 1 21 MG/24HR Patch 24 Hour 1 patch to skin Transdermal Once a day; Duration: 30 day(s) 09/16/2019 Active traMADol HCl 50 MG Tablet 1 tablet as needed Orally Once a day prescribed by her former primary care provider, for sciatic Active guaiFENesin 600 MG Tablet Extended Release 1 tablet as needed Orally every 4 hrs; Duration: 10 days 12/08/2019 Active Flonase 50 MCG/ACT Suspension 1 spray in each nostril Nasally Once a day; Duration: 30 day(s) 09/16/2019 Active Claritin 10 MG Tablet 1 tablet Orally Once a day; Duration: 30 day(s) 12/08/2019 Active Albuterol Sulfate HFA 108 (90 Base) MCG/ACT Aerosol Solution 1 puff as needed Inhalation every 4 hrs; Duration: 30 days 12/01/2019 Active Social History Social History Drugs/Alcohol: Social Info Question Answer Notes Alcohol Screen (Audit-C) Did you have a drink containing alcohol in the past year? No Points 0 Interpretation Negative Drugs Have you used drugs other than those for medical reasons in the past 12 months? No Caffeine Intake: 2-3 cups per day Comprehensive Health Assessm ent Social Info Question Answer Notes Advance Care Planning Advance care planning Does not have advanced directive Social Functioning Do you suffer from social anxiety? No Diversity Disability Yes Family/ social/ cultural characteristics Are you currently employed? No Household: Social Info Question Answer Notes Household Marital status: Number of adults in household: 3 -living with parents Tobacco Use: Social Info Question Answer Notes xTobacco Use/Smoking Are you a current every day sm madie Additional Findings: Tobacco User Moderate cigar ette smoker (10-19 cigs/day) Tobacco use other than smoking: Are you an other tobac co user? No How often do you smoke? once a day 20 pack year history Additional Details Category Social Info Options Details Drugs/Alcohol: Do you smoke marijuana? 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) Cigarette nicotine dependence with nicotine-induced disorder (F17.219) Active confirmed Problem Viral upper respiratory tract infection (773051969) Viral upper respiratory tract infection (J06.9) Active confirmed Problem Tobacco dependence (00231914) Tobacco dependence (F17.200) Active confirmed Problem 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, 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) Active confirmed Plan Of Treatment No Information Insurance Providers Payer Name Payer Address Payer Phone Subscriber Number Group Number Insured Name Patient Relationship to Insured Coverage Start Date Coverage End Date [employer] [place] [address] [address] [place] [phone] [id number] Diana Alejandro Self - patient is the insured Medical (General) History Medical History History ICD Code Hypertension I10 Epilepsy, unspecified, intractable, with out status epilepticus G40.919 Sciatica of right side M54.31 seasonal allergies Surgical History Surgery Date(Month/Year) HYSTERECTOMY/REVISE VAGINA cholecystectomy appendectomy Hospitalization History Reason Date(Month/Year) of children X 3 gallbladder surgery hysterectomy surgery
[2025-04-18 03:46] VITALS: BMI 29.7
--- NOTE | 2025-04-18 03:47 | W.ED.BACK ---
Documented by User: Josiah Huggins MD 04/18/25 05:44 HPI - Back Pain/Injury General: Chief Complaint: Back Pain/Injury Stated Complaint: Pain in the middle back Time Seen by Provider: 04/18/25 03:31 Source: patient Mode of arrival: ambulatory Limitations: no limitations History of Present Illness: 54-year-old female comes in with right upper back pain. Reports it just keeps spasming and when I allow her to sleep. She has been up all night. Pain is moderate to severe, waxing and waning. But not going away. Has not had this issue before. Related Data Home Medications ?Medication ?Instructions ?Recorded ?Confirmed cholecalciferol (vitamin D3) 1,250 50,000 unit PO Q7D 07/26/23 10/22/23 mcg (50,000 unit) capsule Previous Rx's ?Medication ?Instructions ?Recorded clonazepam 1 mg tablet 1 mg PO TID #180 tabs 08/06/23 topiramate 50 mg tablet (Topamax) 50 mg PO DAILY #180 tabs 08/23/23 lisinopril 10 mg tablet 10 mg PO DAILY #60 tabs 09/13/23 albuterol sulfate 90 mcg/actuation 2 puff inhalation Q4H PRN 10/22/23 aerosol inhaler (Ventolin HFA) shortness of breath or wheezing #8.5 grams benzonatate 150 mg capsule 150 mg PO TID PRN cough #20 caps 10/22/23 lamotrigine 50 mg tablet,extended 150 mg (3 x 50 mg) PO BID #180 tabs 11/05/23 release 24 hr amoxicillin 875 mg-potassium 1 tab PO BID #14 tabs 01/06/24 clavulanate 125 mg tablet meclizine 25 mg tablet 25 mg PO BID PRN dizziness #14 tabs 01/06/24 Allergies Allergy/AdvReac Type Severity Reaction Status Date / Time Carbamates Allergy ADR-Seizure Verified 10/22/23 17:03 carbamazepine (From Tegretol) Allergy ADR-Seizure Verified 10/22/23 17:03 codeine Allergy ALGY-Hives Verified 10/22/23 17:03 gabapentin Allergy ADR-Seizure Verified 10/22/23 17:03 morphine Allergy ALGY-Hives Verified 10/22/23 17:03 oxcarbazepine Allergy ADR-Seizure Verified 10/22/23 17:03 phenobarbital Allergy ADR-Seizure Verified 10/22/23 17:03 phenytoin Allergy ADR-Seizure Verified 10/22/23 17:03 pregabalin Allergy ADR-Seizure Verified 10/22/23 17:03 tiagabine Allergy ADR-Seizure Verified 10/22/23 17:03 vigabatrin Allergy ADR-Seizure Verified 10/22/23 17:03 Review of Systems General: Reports: 10 or more systems reviewed and unremarkable except in HPI and below PFSH ED PFSH: Medical History (Updated 04/18/25 @ 06:36 by Nathan Ordoñez MD) Juvenile myoclonic epilepsy, intractable, without status epilepticus Hypertension Surgical History History of cholecystectomy Hx of hysterectomy Hx of appendectomy Hx of colonoscopy with polypectomy No pertinent past surgical history Family History Grandmother Cancer Heart attack Mother Hypertension Daughter Epilepsy Social History Smoking and tobacco/nicotine status: former use of tobacco/nicotine Alcohol intake: never Physical Exam Const: COMMON NORMALS: no acute distress, average body habitus, patient oriented x3, healthy appearing, alert and well nourished GENERAL APPEARANCE: well kempt and well developed HENMT: COMMON NORMALS: normocephalic, atraumatic, external ears normal and moist oral mucous membranes HEAD & SCALP: normocephalic and atraumatic EXTERNAL EAR: Yes external ears normal Eye: COMMON NORMALS: Equal, round and reactive pupils present, EOMs intact bilaterally and conjunctivae normal CONJUNCTIVA: Yes conjunctivae normal PUPIL: Yes Equal, round and reactive pupils present Neck/C-Spine: COMMON NORMALS: full ROM, no lymphadenopathy and supple Chest: CHEST: Yes Symmetrical chest wall rise and No Surgical scars present (Chest) Resp: COMMON NORMALS: normal respiratory effort, No retractions, No use of accessory muscles and clear to auscultation bilaterally AUSCULTATION: clear to auscultation bilaterally Cardio: COMMON NORMALS: regular rate, regular rhythm, S1 normal heart sound present, S2 normal heart sound present, No gallops present (Cardio), No clicks present (Cardio), No murmurs present (Cardio) and No rub (Cardio) RATE: regular rate RHYTHM: regular rhythm HEART SOUNDS: S1 normal heart sound present, S2 normal heart sound present and no murmurs PERIPHERAL PULSES: other (Radial pulses 2+ and symmetric) GI: COMMON NORMALS: Soft to palpation, non-tender and no masses INSPECTION: No abdominal distension PALPATION: Yes Soft to palpation, No Guarding due to palpation present (GI) and No Rebound tenderness present : COMMON NORMALS: Yes no CVA tenderness BLADDER/KIDNEY EXAM: Yes no CVA tenderness Back/Pelvis: COMMON NORMALS: no CVA tenderness OTHER: Increase tonicity of the right posterior thoracic cavity both paraspinals and along the inferior portion of the scapula with multiple trigger points palpated. Extremity: COMMON NORMALS: normal to inspection, full ROM, capillary refill normal and no clubbing, cyanosis or edema Neuro: COMMON NORMALS: patient oriented x3 SENSORIUM/ORIENTATION: Yes alert Psych: APPEARANCE: Yes well kempt Skin: COMMON NORMALS: no rashes or lesions noted, no wounds, turgor normal and no jaundice GENERAL SKIN EXAM: no rashes or lesions noted and turgor normal Course Vital Signs: Vital signs: Vital Signs Pulse Rate 63 04/18/25 06:19 Respiratory Rate 18 04/18/25 06:19 Blood Pressure 182/110 04/18/25 06:19 Pulse Oximetry 97 04/18/25 06:19 MDM - Back Pain/Injury Medical Decision Making Patient with multiple sides of the right thoracic chest, being Toradol and muscle relaxer. I was open reviewed and thankfully unremarkable, no signs for the increased spasms from electrolyte standpoint. Patient be handed off due to shift change for reevaluation for potential discharge. Medical Records I reviewed the patient's medical records. Labs I reviewed the patient's lab results. 04/18/25 04:10 04/18/25 04:10 Laboratory Results WBC 6.10 10^3/uL (3.29-11.43) 04/18/25 04:10 RBC 4.99 10^6/uL (3.85-5.65) 04/18/25 04:10 Hgb 13.70 g/dL (11.27-16.99) 04/18/25 04:10 Hct 41.7 % (36-47) 04/18/25 04:10 MCV 83.6 fl (85-98) L 04/18/25 04:10 MCH 27.5 pg (27-33) 04/18/25 04:10 MCHC 32.9 g/dL (30-55) 04/18/25 04:10 RDW 13.4 % (12.1-15.1) 04/18/25 04:10 Plt Count 247 10^3/cmm (157-399) 04/18/25 04:10 MPV 11.1 fL (7.4-10.4) H 04/18/25 04:10 Neut % (Auto) 33.9 % 04/18/25 04:10 Lymph % (Auto) 53.6 % 04/18/25 04:10 [place] % (Auto) 9.3 % 04/18/25 04:10 Eos % (Auto) 2.0 % 04/18/25 04:10 Baso % (Auto) 1.0 % 04/18/25 04:10 Neut # (Auto) 2.07 10^3/uL (1.8-7.7) 04/18/25 04:10 Lymph # (Auto) 3.3 10^3/uL (0.8-4.8) 04/18/25 04:10 [place] # (Auto) 0.6 10^3/uL (0.2-0.9) 04/18/25 04:10 Eos # (Auto) 0.1 10^3/uL (0.0-0.8) 04/18/25 04:10 Baso # (Auto) 0.1 10^3/uL (0.0-0.1) 04/18/25 04:10 Nucleated RBC % (auto) 0 % 04/18/25 04:10 Nucleated RBCs # 0.0 /100WBC 04/18/25 04:10 Sodium 141 mmol/L (136-145) 04/18/25 04:10 Potassium 3.8 mmol/L (3.5-5.1) 04/18/25 04:10 Chloride 108 mmol/L (98-107) H 04/18/25 04:10 Carbon Dioxide 20 mmol/L (22-29) L 04/18/25 04:10 Anion Gap 16.8 (5-19) 04/18/25 04:10 BUN 18 mg/dL (6-20) 04/18/25 04:10 Creatinine 0.9 mg/dL (0.5-0.9) 04/18/25 04:10 GFR Calculation 65.8 mL/min (90-130) L 04/18/25 04:10 Glucose 116 mg/dL (65-115) H 04/18/25 04:10 Calculated Osmolality 295 mOsm/kg (285-295) 04/18/25 04:10 Calcium 9.1 mg/dL (8.5-10.5) 04/18/25 04:10 Total Bilirubin 0.4 mg/dL (0.15-1.2) 04/18/25 04:10 AST 19 U/L (0-32) 04/18/25 04:10 ALT 16 U/L (0-33) 04/18/25 04:10 Alkaline Phosphatase 76 U/L (35-105) 04/18/25 04:10 Total Protein 7.1 g/dL (6.6-8.7) 04/18/25 04:10 Albumin 4.3 g/dL (3.5-5.2) 04/18/25 04:10 Globulin 2.8 g/dL (1.3-4.6) 04/18/25 04:10 No radiology studies performed this visit Discharge Plan Discharge Patient Disposition: Home Clinical Impression: Back pain Qualifiers: Back pain location: thoracic back pain Chronicity: acute Back pain laterality: right Qualified Code(s): M54.6 - Pain in thoracic spine Condition: Stable Prescriptions: No Action lisinopril 10 mg tablet 10 mg PO DAILY Qty: 60 3RF albuterol sulfate [Ventolin HFA] 90 mcg/actuation HFA aerosol inhaler 2 puff inhalation Q4H PRN (Reason: shortness of breath or wheezing) Qty: 8.5 0RF benzonatate 150 mg capsule 150 mg PO TID PRN (Reason: cough) Qty: 20 0RF clonazepam 1 mg tablet 1 mg PO TID Qty: 180 2RF topiramate [Topamax] 50 mg tablet 50 mg PO DAILY Qty: 180 5RF Rx Instructions: 1 at bedtime lamotrigine 50 mg tablet extended release 24hr 150 mg PO BID Qty: 180 5RF Rx Instructions: 150 mg in AM 150 mg in PM amoxicillin-pot clavulanate 875-125 mg tablet 1 tab PO BID Qty: 14 0RF meclizine 25 mg tablet 25 mg PO BID PRN (Reason: dizziness) Qty: 14 0RF cholecalciferol (vitamin D3) 1,250 mcg (50,000 unit) capsule 50,000 unit PO Q7D Discharge Orders: Discharge ED (Routine); Ordered 04/18/25 Ordered By: Nathan Ordoñez Referrals: Krzysztof Vickers MD [Primary Care Provider, Neurology] Discharge Diet: Usual diet Discharge Activity: Resume usual activity Patient Instructions: Opioid Safety, Pain Management, Patient Portal & Mario Instructions Activity Restrictions/Additional Instructions: It has been a pleasure caring for you in the emergency department. Please ensure that you follow-up with your primary care physician for review of all data obtained during this encounter including any incidental findings and laboratory values. Keep in mind that if your condition worsens in any way, I strongly recommend that you return to the emergency department for repeat evaluation immediately. Take 1000 mg of Tylenol and 400 mg of Motrin at breakfast lunch and dinner. Print Language: Bolivian Coding Level of Care Code ED Core Measures Abstractor for Chg Fwd Documented by User: Nathan Ordoñez MD 04/18/25 06:46 HPI - Back Pain/Injury General: Chief Complaint: Back Pain/Injury Stated Complaint: Pain in the middle back Time Seen by Provider: 04/18/25 03:31 Related Data Home Medications ?Medication ?Instructions ?Recorded ?Confirmed cholecalciferol (vitamin D3) 1,250 50,000 unit PO Q7D 07/26/23 10/22/23 mcg (50,000 unit) capsule Previous Rx's ?Medication ?Instructions ?Recorded clonazepam 1 mg tablet 1 mg PO TID #180 tabs 08/06/23 topiramate 50 mg tablet (Topamax) 50 mg PO DAILY #180 tabs 08/23/23 lisinopril 10 mg tablet 10 mg PO DAILY #60 tabs 09/13/23 albuterol sulfate 90 mcg/actuation 2 puff inhalation Q4H PRN 10/22/23 aerosol inhaler (Ventolin HFA) shortness of breath or wheezing #8.5 grams benzonatate 150 mg capsule 150 mg PO TID PRN cough #20 caps 10/22/23 lamotrigine 50 mg tablet,extended 150 mg (3 x 50 mg) PO BID #180 tabs 11/05/23 release 24 hr amoxicillin 875 mg-potassium 1 tab PO BID #14 tabs 01/06/24 clavulanate 125 mg tablet meclizine 25 mg tablet 25 mg PO BID PRN dizziness #14 tabs 01/06/24 Allergies Allergy/AdvReac Type Severity Reaction Status Date / Time Carbamates Allergy ADR-Seizure Verified 10/22/23 17:03 carbamazepine (From Tegretol) Allergy ADR-Seizure Verified 10/22/23 17:03 codeine Allergy ALGY-Hives Verified 10/22/23 17:03 gabapentin Allergy ADR-Seizure Verified 10/22/23 17:03 morphine Allergy ALGY-Hives Verified 10/22/23 17:03 oxcarbazepine Allergy ADR-Seizure Verified 10/22/23 17:03 phenobarbital Allergy ADR-Seizure Verified 10/22/23 17:03 phenytoin Allergy ADR-Seizure Verified 10/22/23 17:03 pregabalin Allergy ADR-Seizure Verified 10/22/23 17:03 tiagabine Allergy ADR-Seizure Verified 10/22/23 17:03 vigabatrin Allergy ADR-Seizure Verified 10/22/23 17:03 PFSH ED PFSH: Medical History (Updated 04/18/25 @ 06:36 by Nathan Ordoñez MD) Juvenile myoclonic epilepsy, intractable, without status epilepticus Hypertension Surgical History History of cholecystectomy Hx of hysterectomy Hx of appendectomy Hx of colonoscopy with polypectomy No pertinent past surgical history Family History Grandmother Cancer Heart attack Mother Hypertension Daughter Epilepsy Social History Smoking and tobacco/nicotine status: former use of tobacco/nicotine Alcohol intake: never Course Vital Signs: Vital signs: Vital Signs Pulse Rate 63 04/18/25 06:19 Respiratory Rate 18 04/18/25 06:19 Blood Pressure 182/110 04/18/25 06:19 Pulse Oximetry 97 04/18/25 06:19 MDM - Back Pain/Injury Medical Decision Making Patient with multiple sides of the right thoracic chest, being Toradol and muscle relaxer. I was open reviewed and thankfully unremarkable, no signs for the increased spasms from electrolyte standpoint. Patient be handed off due to shift change for reevaluation for potential discharge. Signout time: 0600 Pending: Reassessment after fentanyl. Patient has marked improvement in her symptoms. She states she feels amenable to going home at this time. She states that the pain occurred after lifting her groceries and does not radiate into her chest or other areas of her flank. No cardiac history. Patient does not smoking history that she quit 4 years ago. Obtain EKG to ensure not an occult ACS presentation. EKG nonischemic. Patient viable for discharge home at this time advise follow-up with PCM. EKG: Rate: Normal Rhythm: Sinus [place]: Normal variant Intervals: Normal Ischemia: No STEMI criteria Patient educated about reasons to return to the emergency department including signs of ongoing or changing condition. Advised to make an appointment with primary care or to establish care with a primary care provider to review all results from this encounter. This note was written with assistance of dictation software. Contact author for any clarification of typos. Nathan Ordoñez MD Labs 04/18/25 04:10 04/18/25 04:10 Laboratory Results WBC 6.10 10^3/uL (3.29-11.43) 04/18/25 04:10 RBC 4.99 10^6/uL (3.85-5.65) 04/18/25 04:10 Hgb 13.70 g/dL (11.27-16.99) 04/18/25 04:10 Hct 41.7 % (36-47) 04/18/25 04:10 MCV 83.6 fl (85-98) L 04/18/25 04:10 MCH 27.5 pg (27-33) 04/18/25 04:10 MCHC 32.9 g/dL (30-55) 04/18/25 04:10 RDW 13.4 % (12.1-15.1) 04/18/25 04:10 Plt Count 247 10^3/cmm (157-399) 04/18/25 04:10 MPV 11.1 fL (7.4-10.4) H 04/18/25 04:10 Neut % (Auto) 33.9 % 04/18/25 04:10 Lymph % (Auto) 53.6 % 04/18/25 04:10 [place] % (Auto) 9.3 % 04/18/25 04:10 Eos % (Auto) 2.0 % 04/18/25 04:10 Baso % (Auto) 1.0 % 04/18/25 04:10 Neut # (Auto) 2.07 10^3/uL (1.8-7.7) 04/18/25 04:10 Lymph # (Auto) 3.3 10^3/uL (0.8-4.8) 04/18/25 04:10 [place] # (Auto) 0.6 10^3/uL (0.2-0.9) 04/18/25 04:10 Eos # (Auto) 0.1 10^3/uL (0.0-0.8) 04/18/25 04:10 Baso # (Auto) 0.1 10^3/uL (0.0-0.1) 04/18/25 04:10 Nucleated RBC % (auto) 0 % 04/18/25 04:10 Nucleated RBCs # 0.0 /100WBC 04/18/25 04:10 Sodium 141 mmol/L (136-145) 04/18/25 04:10 Potassium 3.8 mmol/L (3.5-5.1) 04/18/25 04:10 Chloride 108 mmol/L (98-107) H 04/18/25 04:10 Carbon Dioxide 20 mmol/L (22-29) L 04/18/25 04:10 Anion Gap 16.8 (5-19) 04/18/25 04:10 BUN 18 mg/dL (6-20) 04/18/25 04:10 Creatinine 0.9 mg/dL (0.5-0.9) 04/18/25 04:10 GFR Calculation 65.8 mL/min (90-130) L 04/18/25 04:10 Glucose 116 mg/dL (65-115) H 04/18/25 04:10 Calculated Osmolality 295 mOsm/kg (285-295) 04/18/25 04:10 Calcium 9.1 mg/dL (8.5-10.5) 04/18/25 04:10 Total Bilirubin 0.4 mg/dL (0.15-1.2) 04/18/25 04:10 AST 19 U/L (0-32) 04/18/25 04:10 ALT 16 U/L (0-33) 04/18/25 04:10 Alkaline Phosphatase 76 U/L (35-105) 04/18/25 04:10 Total Protein 7.1 g/dL (6.6-8.7) 04/18/25 04:10 Albumin 4.3 g/dL (3.5-5.2) 04/18/25 04:10 Globulin 2.8 g/dL (1.3-4.6) 04/18/25 04:10 Discharge Plan Discharge Patient Disposition: Home Clinical Impression: Back pain Qualifiers: Back pain location: thoracic back pain Chronicity: acute Back pain laterality: right Qualified Code(s): M54.6 - Pain in thoracic spine Condition: Stable Prescriptions: No Action lisinopril 10 mg tablet 10 mg PO DAILY Qty: 60 3RF albuterol sulfate [Ventolin HFA] 90 mcg/actuation HFA aerosol inhaler 2 puff inhalation Q4H PRN (Reason: shortness of breath or wheezing) Qty: 8.5 0RF benzonatate 150 mg capsule 150 mg PO TID PRN (Reason: cough) Qty: 20 0RF clonazepam 1 mg tablet 1 mg PO TID Qty: 180 2RF topiramate [Topamax] 50 mg tablet 50 mg PO DAILY Qty: 180 5RF Rx Instructions: 1 at bedtime lamotrigine 50 mg tablet extended release 24hr 150 mg PO BID Qty: 180 5RF Rx Instructions: 150 mg in AM 150 mg in PM amoxicillin-pot clavulanate 875-125 mg tablet 1 tab PO BID Qty: 14 0RF meclizine 25 mg tablet 25 mg PO BID PRN (Reason: dizziness) Qty: 14 0RF cholecalciferol (vitamin D3) 1,250 mcg (50,000 unit) capsule 50,000 unit PO Q7D Discharge Orders: Discharge ED (Routine); Ordered 04/18/25 Ordered By: Nathan Ordoñez Referrals: Krzysztof Vickers MD [Primary Care Provider, Neurology] Discharge Diet: Usual diet Discharge Activity: Resume usual activity Patient Instructions: Opioid Safety, Pain Management, Patient Portal & Mario Instructions Activity Restrictions/Additional Instructions: It has been a pleasure caring for you in the emergency department. Please ensure that you follow-up with your primary care physician for review of all data obtained during this encounter including any incidental findings and laboratory values. Keep in mind that if your condition worsens in any way, I strongly recommend that you return to the emergency department for repeat evaluation immediately. Take 1000 mg of Tylenol and 400 mg of Motrin at breakfast lunch and dinner. Print Language: Bolivian Coding Level of Care Code ED Core Measures Abstractor for Paul Macdonald
[2025-04-18] MEDS: orphenadrine 30 mg/mL Inj 2 mL 60 MG IVP (04:02)
[2025-04-18 04:14] VITALS: BP 150/99; PULSE 63; O2SAT 97
[2025-04-18 04:16] LABS: Hematocrit 41.7 % (36-47); Hemoglobin 13.70 g/dL (11.27-16.99); Mean Corpuscular HGB Conc 32.9 g/dL (30-55); Mean Corpuscular Hemoglobin 27.5 pg (27-33); Mean Corpuscular Volume 83.6 fl (85-98); Nucleated Red Blood Cells % 0 %; Platelet Count 247 10^3/cmm (157-399); Red Blood Count 4.99 10^6/uL (3.85-5.65); White Blood Count 6.10 10^3/uL (3.29-11.43)
[2025-04-18 04:35] LABS: Alanine Aminotransferase 16 U/L (0-33); Albumin Level 4.3 g/dL (3.5-5.2); Alkaline Phosphatase 76 U/L (35-105); Anion Gap 16.8 (5-19); Aspartate Amino Transferase 19 U/L (0-32); Blood Urea Nitrogen 18 mg/dL (6-20); Calcium 9.1 mg/dL (8.5-10.5); Carbon Dioxide 20 mmol/L (22-29); Chloride 108 mmol/L (98-107); Creatinine Clr Calc Pharmacy 82.4568; Globulin 2.8 g/dL (1.3-4.6); Glucose 116 mg/dL (65-115); Osmolality Calculated 295 mOsm/kg (285-295); Potassium 3.8 mmol/L (3.5-5.1); Sodium 141 mmol/L (136-145); Total Protein 7.1 g/dL (6.6-8.7)
[2025-04-18 06:07] VITALS: RESP 16
[2025-04-18] MEDS: fentaNYL 50 mcg/mL INJ 2mL IVP (06:07)
[2025-04-18] MEDS: ondansetron 2 mg/ML SDV 2 mL 4 MG IVP (06:07)
[2025-04-18 06:19] VITALS: BP 182/110; PULSE 63; RESP 18; O2SAT 97
--- NOTE | 2025-04-18 06:40 | ECG_ITS ---
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
[2025-04-18 06:55] VITALS: BP 163/101; PULSE 55; RESP 15; O2SAT 97
== END 2025-04-18 06:58 | disposition home or self-care (01) ==
PROVIDERS: Emergency Medicine; Emergency Provider General Practice; PCP Psychiatry & Neurology Neurology
DX: M54.6 Pain in thoracic spine (principal); Z87.891 Personal history of nicotine dependence; I10 Essential (primary) hypertension
CPT/HCPCS: 36415; 80053; 85025; 93005; 96374; 96375; 99284; J1885; J2360; J2405; J3010